=== PATIENT | female | born 1980 | race African-American/Black ===

== ENCOUNTER → 2019-05-15 | Emergency (ER) | payer MEDICAID, OTHER ==
[~2019-05-15] VITALS: Ht 167.6 cm; Wt 65.3 kg
[~2019-05-15] MED LIST: SODIUM CHLORIDE 0.9% 1,000 ML IV ONE
[2019-05-15 17:55] LABS: Basophils # (auto) 0.1 uL; Basophils % (auto) 0.6 % (0.0-2.0); Eosinophils # (auto) 0 uL; Eosinophils % (auto) 0.2 % (0.0-7.0); Hematocrit 39.9 % (36.0-46.0); Hemoglobin 13.2 g/dL (12.2-16.2); Lymphocytes # (auto) 1.4 uL; Lymphocytes % (auto) 13.2 % (10.0-50.0); Mean Corpuscular Hemoglobin 29.2 pg (28.0-32.0); Mean Corpuscular Hgb Conc. 33.1 g/dL (32.0-36.0); Mean Corpuscular Volume 88.2 fL (80.0-100.0); Monocytes # (auto) 0.6 uL; Monocytes % (auto) 5.9 % (0.0-12.0); Neutrophils # (auto) 8.5 uL; Neutrophils % (auto) 80.1 % (37.0-80.0); Platelet Count (auto) 278 10^3/uL (140-450); Red Blood Cells 4.52 10^6/uL (4.0-5.20); Red Cell Distribution Width 16.6 % (11.8-14.3); White Blood Cell 10.6 10^3/uL (4.4-10.8)
[2019-05-15 18:09] LABS: Albumin 4.1 g/dL (3.4-5.0); Calcium 9.2 mg/dL (8.5-10.1); Potassium 4.2 mmol/L (3.5-5.1)
[2019-05-15 18:15] LABS: BUN/Creatinine Ratio 9.2; Bilirubin, Total 0.5 mg/dL (0.2-1.0); Total Protein 8.5 g/dL (6.4-8.2)
[2019-05-15 18:59] VITALS: BP 113/80
== END | disposition home or self-care (01) ==
LOC: EDUNIT# 16:04 → ER 16:11 → EDBD 16:11
DX: S16.1XXA Strain of muscle, fascia and tendon at neck level, initial encounter (principal); K21.9 Gastro-esophageal reflux disease without esophagitis; Z98.51 Tubal ligation status; S09.8XXA Other specified injuries of head, initial encounter; X58.XXXA Exposure to other specified factors, initial encounter; Y93.89 Activity, other specified; Y92.89 Other specified places as the place of occurrence of the external cause; Y99.8 Other external cause status
CPT/HCPCS: 36415; 70450; 72125; 80053; 84484; 85025; 93005; 96360; 99285; J7030

== ENCOUNTER 2021-11-06 07:39 | Emergency (ER) | payer MEDICAID ==
[~2021-11-06] VITALS: Ht 167.6 cm; Wt 67.2 kg
[2021-11-06 09:28] LABS: Basophils # (auto) 0 10 ^3/uL (0-0.2); Basophils % (auto) 0.8 % (0.0-2.0); Eosinophils # (auto) 0 10 ^3/uL (0-0.8); Eosinophils % (auto) 0.6 % (0.0-7.0); Hematocrit 40.9 % (36.0-46.0); Hemoglobin 13.1 g/dL (12.2-16.2); Lymphocytes # (auto) 1.5 10 ^3/uL (0.4-5.4); Lymphocytes % (auto) 35.1 % (10.0-50.0); Mean Corpuscular Hemoglobin 29.4 pg (28.0-32.0); Mean Corpuscular Hgb Conc. 32.1 g/dL (32.0-36.0); Mean Corpuscular Volume 91.6 fL (80.0-100.0); Monocytes # (auto) 0.3 10 ^3/uL (0-1.3); Monocytes % (auto) 6.6 % (0.0-12.0); Neutrophils # (auto) 2.4 10 ^3/uL (1.6-8.6); Neutrophils % (auto) 56.9 % (37.0-80.0); Nucleated Red Blood Cells % 0.1 %; Red Blood Cells 4.47 10^6/uL (4.0-5.20); Red Cell Distribution Width 13.9 % (11.8-14.3); White Blood Cell 4.2 10^3/uL (4.4-10.8)
[2021-11-06 09:54] LABS: Potassium 3.4 mmol/L (3.5-5.1)
[2021-11-06 10:01] LABS: Bilirubin, Total 0.7 mg/dL (0.2-1.0); Calcium 9.2 mg/dL (8.5-10.1); Total Protein 7.6 g/dL (6.4-8.2)
[2021-11-06 10:22] LABS: Urine Bacteria FEW /hpf (None Seen); Urine Blood Negative /uL (Negative); Urine Specific Gravity 1.009 (1.001-1.035); Urine WBC 1 /hpf (0 - 5)
[2021-11-06] MEDS ORDERED: SODIUM CHLORIDE 0.9% 1,000 ML IV ONE (11:00)
[2021-11-06] MEDS ORDERED: IOHEXOL 300 MG/ML 100ML BOTTLE IJ ONE (11:17)
[2021-11-06] MEDS ORDERED: CIPR-173 PO (17:11)
[2021-11-06] MEDS ORDERED: NAP500T PO (17:11)
[2021-11-06] MEDS ORDERED: TRAM50TA2 PO (17:11)
[2021-11-06 17:25] VITALS: BP 166/97
== END 2021-11-06 17:27 | disposition home or self-care (01) ==
LOC: ER 07:39
DX: N39.0 Urinary tract infection, site not specified (principal); D25.9 Leiomyoma of uterus, unspecified; N83.202 Unspecified ovarian cyst, left side; K64.4 Residual hemorrhoidal skin tags
CPT/HCPCS: 36415; 74177; 80053; 81001; 83690; 83735; 84702; 85025; 99285; Q9967

== ENCOUNTER 2023-03-22 09:55 | Emergency (ER) | payer OTHER, MEDICAID ==
[~2023-03-22] VITALS: Ht 167.6 cm; Wt 70.2 kg
[~2023-03-22 09:55] MED LIST changes: +CIPR-173 PO; +NAP500T PO; -SODIUM CHLORIDE 0.9% 1,000 ML IV ONE; +TRAM50TA2 PO
[2023-03-22 10:47] VITALS: BP 131/95; PULSE 91; RESP 16; TEMP 97.5; O2SAT 100
[2023-03-22] MEDS ORDERED: HYDROcodone-ACET 10/325MG TAB PO ONE (11:00)
[2023-03-22] MEDS ORDERED: KETOROLAC TROMETH 60MG/2ML VIAL IM ONE (11:00)
== END 2023-03-22 12:15 | disposition home or self-care (01) ==
LOC: ER 09:55
DX: M54.12 Radiculopathy, cervical region (principal); M50.30 Other cervical disc degeneration, unspecified cervical region; K21.9 Gastro-esophageal reflux disease without esophagitis; Z86.2 Personal history of diseases of the blood and blood-forming organs and certain disorders involving the immune mechanism; Z79.899 Other long term (current) drug therapy
CPT/HCPCS: 72040; 96372; 99283; J1885

== ENCOUNTER 2024-05-06 21:57 | Inpatient (IN) | payer OTHER, MEDICAID ==
[~2024-05-06] VITALS: Ht 167.6 cm; Wt 72.7 kg
[2024-05-06 22:00] VITALS: BP 151/89; RESP 18; O2SAT 100
[2024-05-06 22:29] LABS: Nucleated Red Blood Cells % 0.1 %
[2024-05-06] MEDS ORDERED: NITROGLYCERIN 2% OINT 1GM PKG TD ONE (22:30)
[2024-05-06] MEDS ORDERED: ASPirin 325 MG TAB PO ONE (22:30)
[2024-05-06 22:35] LABS: Basophils # (auto) 0.1 10 ^3/uL (0-0.2); Basophils % (auto) 0.6 % (0.0-2.0); Eosinophils # (auto) 0.2 10 ^3/uL (0-0.8); Eosinophils % (auto) 2.9 % (0.0-7.0); Hematocrit 41.6 % (36.0-46.0); Lymphocytes # (auto) 3.4 10 ^3/uL (0.4-5.4); Lymphocytes % (auto) 39.6 % (10.0-50.0); Mean Corpuscular Hemoglobin 30.3 pg (28.0-32.0); Mean Corpuscular Hgb Conc. 33.7 g/dL (32.0-36.0); Mean Corpuscular Volume 89.9 fL (80.0-100.0); Monocytes # (auto) 0.5 10 ^3/uL (0-1.3); Monocytes % (auto) 5.8 % (0.0-12.0); Neutrophils # (auto) 4.3 10 ^3/uL (1.6-8.6); Neutrophils % (auto) 51.1 % (37.0-80.0); Platelet Count (auto) 231 10^3/uL (140-450); Red Blood Cells 4.63 10^6/uL (4.0-5.20); White Blood Cell 8.5 10^3/uL (4.4-10.8)
--- NOTE | 2024-05-06 22:38 | DVH ---
CHEST RADIOGRAPH Indication: cp Technique: Single frontal view of the chest was obtained Comparison: None FINDINGS: Lines and Tubes: None Lungs: Clear Pleura: No effusion. No pneumothorax. Cardiomediastinal contours: Unremarkable Bones: Unremarkable IMPRESSION: Clear lungs.
[2024-05-06 22:51] LABS: Alanine Aminotransferase 18 U/L (7-40); Alkaline Phosphatase 51 U/L (46-116); Anion Gap 11 (5-15); Aspartate Aminotransferase 19 U/L (13-40); Bilirubin, Total 0.5 mg/dL (0.2-1.0); Carbon Dioxide 25 mmol/L (20-31); Chloride 103 mmol/L (98-107); Glucose 93 mg/dL (74-106); Potassium 3.9 mmol/L (3.5-5.1); Sodium 139 mmol/L (136-145); Total Protein 7.9 g/dL (5.7-8.2)
[2024-05-06 22:52] LABS: Albumin 5.3 g/dL (3.2-4.8); Blood Urea Nitrogen 8 mg/dL (9-23)
--- NOTE | 2024-05-06 23:14 | ED.PDOC ---
History of Present Illness HPI Comments 44 y/o F with a history of hypertension, diabetes, GERD, anemia brought in by self complaining of chest pain for the last 3 days. Patient states the pain is intermittent, localized to the retrosternal area, associated with shortness breath and bilateral lower extremity swelling. Patient also notes that the veins in her legs have been more prominent than normal. She denies any fever, cough, nausea, vomiting or diaphoresis. Chief Complaint: Chest Pain Time Seen by MD: 22:10 Primary Care Provider: Shannon Wilson Reviewed Notes: Nurses Notes, Medications, Allergies Allergies: Coded Allergies: NO KNOWN ALLERGIES (Unverified , 05/15/19) Home Meds Active Scripts Tramadol Hcl (Tramadol Hcl) 50 Mg Tab, 50 MG PO BID for 5 Days, #10 TAB Prov:VIKRAM SANZ MD 11/06/21 Naproxen (NAPROSYN TABLET) 500 Mg Tb, 1 TAB PO BID for 7 Days, #14 TAB 1 Refill Prov:VIKRAM SANZ MD 11/06/21 Ciprofloxacin Hcl (Cipro) 500 Mg Tab, 1 TAB PO BID for 7 Days, #14 TAB Prov:VIKRAM SANZ MD 11/06/21 Information Source: Patient Mode of Arrival: Ambulatory Severity: Moderate Timing: Hours Duration: Since onset Prehospital treatment: None Past Medical History PAST MEDICAL HISTORY: Anemia, DM, GERD, HTN Surgical History: BTL, Hysterectomy 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 Moist mucous membranes.) Neck: Full Range of Motion, Normal Inspection Respiratory: Lungs Clear, No Accessory Muscle Use, No Respiratory Distress, Normal Breath Sounds Cardiovascular: No JVD, Regular Rate/Rhythm Breast Exam: Deferred Gastrointestinal: Non Tender, Soft Genitalia: Deferred Pelvic: Deferred Rectal: Deferred Extremities: Normal range of motion, Non-tender, Pedal edema (1+) Neurologic: Alert (Oriented x4), Normal Affect, Normal Mood, Other (Ambulatory without difficulty. No gross focal deficit.) Cerebellar Function: NOT DONE Reflexes: NOT DONE Skin: Dry, Normal Color, Warm Lymphatic: NOT DONE Was a procedure done? Was a procedure done?: No EKG EKG : Pulse Rate (adult): 85 Comments Sinus rhythm, rate 78, normal intervals, normal axis, normal QRS, nonspecific T changes. Differential Dx Considerations may include: ACS, VA, PE, chest wall pain, CHF, anxiety, GI etiology, pericarditis, infectious etiology such as pneumonia, among others. X-Ray, Labs, Meds, VS Vital Signs Date Time Temp Pulse Resp B/P (MAP) Pulse Ox O2 Delivery O2 Flow Rate FiO2 05/06/24 23:42 85 05/06/24 23:08 78 05/06/24 22:02 85 05/06/24 22:00 97.7 91 18 151/89 (109) 100 Lab Test 05/06/24 23:04 05/06/24 22:09 Range/Units Troponin I High Sensitivity 11 10 </=34 ng/L White Blood Count 8.5 4.4-10.8 10^3/uL Red Blood Count 4.63 4.0-5.20 10^6/uL Hemoglobin 14.0 12.2-16.2 g/dL Hematocrit 41.6 36.0-46.0 % Mean Corpuscular Volume 89.9 80.0-100.0 fL Mean Corpuscular Hemoglobin 30.3 28.0-32.0 pg Mean Corpuscular Hemoglobin Concent 33.7 32.0-36.0 g/dL Red Cell Distribution Width 14.0 11.8-14.3 % Platelet Count 231 140-450 10^3/uL Mean Platelet Volume 8.2 6.9-10.8 fL Neutrophils (%) (Auto) 51.1 37.0-80.0 % Lymphocytes (%) (Auto) 39.6 10.0-50.0 % Monocytes (%) (Auto) 5.8 0.0-12.0 % Eosinophils (%) (Auto) 2.9 0.0-7.0 % Basophils (%) (Auto) 0.6 0.0-2.0 % Neutrophils # (Auto) 4.3 1.6-8.6 10 ^3/uL Lymphocytes # (Auto) 3.4 0.4-5.4 10 ^3/uL Monocytes # (Auto) 0.5 0-1.3 10 ^3/uL Eosinophils # (Auto) 0.2 0-0.8 10 ^3/uL Basophils # (Auto) 0.1 0-0.2 10 ^3/uL Nucleated Red Blood Cells 0.1 % D-Dimer, Quantitative 0.66 H 0.0-0.49 mg/L FEU Sodium Level 139 136-145 mmol/L Potassium Level 3.9 3.5-5.1 mmol/L Chloride Level 103 98-107 mmol/L Carbon Dioxide Level 25 20-31 mmol/L Anion Gap 11 5-15 Blood Urea Nitrogen 8 L 9-23 mg/dL Creatinine 0.89 0.550-1.02 mg/dL Glomerular Filtration Rate Calc 82 >90 mL/min BUN/Creatinine Ratio 9.0 L 10.0-20.0 Serum Glucose 93 74-106 mg/dL Calcium Level 11.0 H 8.7-10.4 mg/dL Total Bilirubin 0.5 0.2-1.0 mg/dL Aspartate Amino Transferase (AST) 19 13-40 U/L Alanine Aminotransferase (ALT) 18 7-40 U/L Alkaline Phosphatase 51 46-116 U/L B-Type Natriuretic Peptide 8.95 0-100 pg/mL Total Protein 7.9 5.7-8.2 g/dL Albumin 5.3 H 3.2-4.8 g/dL [place] [address] Ph: [phone] DIAGNOSTIC IMAGING Diagnostic Imaging Report : [id number] Signed PATIENT: KIET BERNAL ACCT: [id number] UNIT: [id number] : 1980 LOC: ER ROOM / BED: / AGE / SEX: 44 / F ADM STATUS: REG ER SERVICE 15 ORDERING PHYSICIAN: GAEL LEONARD MD PROCEDURE(s): CXRP - CHEST PORTABLE REASON: cp ORDER NUMBER(s): [id number], ACCESSION NUMBER(s): [id number] CHEST RADIOGRAPH Indication: cp Technique: Single frontal view of the chest was obtained Comparison: None FINDINGS: Lines and Tubes: None Lungs: Clear Pleura: No effusion. No pneumothorax. Cardiomediastinal contours: Unremarkable Bones: Unremarkable IMPRESSION: Clear lungs. ATED BY: LEONARDO TOM DO DICTATED DATE/TIME: 05/06/242235 SIGNED BY: LEONARDO TOM DO SIGNED DATE/TIME: 05/06/242235 CC: X-Ray, Labs, Meds, VS Comment 44-year-old female with history of hypertension, diabetes, GERD and anemia complaining of chest pain and lower extremity swelling Vitals remarkable for BP 151/89 Exam remarkable for 1+ lower extremity edema Rhythm strip independently interpreted by me: Sinus rhythm, rate 78, no ectopy. Chest x-ray unremarkable CT angio chest pending Bilateral lower extremity ultrasound negative for DVT CBC, metabolic panel, BNP and 2 serial troponins unremarkable D-dimer elevated at 0.66 Patient treated with the following in the ED: Aspirin 325 mg p.o., nitro bid 1/2 inch to chest wall On re-evaluation, patient is comfortable with stable vitals. Plan is to admit patient for Cardiology evaluation. Patient was evaluated by the hospitalist and plan was for admission, however the patient stated she did not want to stay. Patient was advised regarding the risks of leaving prior to completion of evaluation and treatment including misse d blood clot in the lungs, persistent or worsening symptoms, permanent disability or . She expressed understanding and insisted on leaving against medical advice. She was alert, oriented x4 and capable of making informed decisions at the time she signed out against medical advice. She was advised to follow-up with her primary physician as soon as possible and to seek immediate medical attention for persistent or worsening symptoms. Time of 1ST Reevaluation: 22:40 Reevaluation 1ST: Unchanged Patient Education/Counseling: Diagnosis, Treatment Family Education/Counseling: No Family Present Departure 1 Departure Time of Disposition: 01:55 Impression: Primary Impression: Chest pain with high risk for cardiac etiology Additional Impression: Elevated d-dimer Disposition: 07 LEFT AGAINST MEDICAL ADVICE Condition: Guarded Additional Instructions: Your blood tests were unremarkable except for the screening test for blood clots, which was abnormal. Your chest x-ray was normal. A CT angiogram of your chest to look for blood clots in your lungs was not completed because you are leaving against medical advice. Follow-up with your primary doctor as soon as possible. Seek immediate medical attention for persistent or worsening symptoms. Discharged With: Self Critical Care Note Critical Care Time?: No Stability Stability form required: No Heart Score Heart Score: Heart Score Response (Comments) Value History Highly Suspicious 2 EKG Repolarization Disturb 1 Age <45 0 Risk Factors 1 or 2 risk factors 1 Troponin Normal limit 0 Total 4 I personally scribed for GAEL LEONARD MD ([email or web address]) on 05/06/24 at 23:14. Electronically submitted by Sandro Fletcher ([email or web address]). I personally scribed for GAEL LEONARD MD ([email or web address]) on 05/06/24 at 23:42. Electronically submitted by Sandro Fletcher ([email or web address]). GAEL LEONARD MD May 06, 2024 23:14
[2024-05-06 23:42] VITALS: PULSE 85
--- NOTE | 2024-05-06 23:55 | ECG ---
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
[2024-05-07] MEDS ORDERED: ACETAMINOPHEN 325 MG TAB PO PRN (02:30)
--- NOTE | 2024-05-07 03:02 | DVH ---
Examination: BLDVT CLINICAL INDICATION: swelling DIREAS; Reason for Exam: Ambulatory; Ambulatory; Modes of Transportatio n DITRANS2; How is patient transported? U; Unknown; Yes/No/Unknown ITS.PREG2; ? [id number]; YES ; Are you ordering this test to VTE.11; Are you ordering this test to rule out VTE. COMPARISON: None. TECHNIQUE: Using real-time ultrasonic imaging and color Doppler, the deep venous system of both lowe r extremities was studied from the level of the common femoral veins to the posterior tibial veins. FINDINGS: Ultrasound examination of bilateral common femoral veins, bilateral deep femoral veins, th e proximal, middle and distal segments of bilateral superficial femoral veins, bilateral popliteal ve ins, and bilateral posterior tibial veins reveal normal phasicity and compression and augmentation. No thrombus was visualized. IMPRESSION: There is no evidence of deep venous thrombosis or superficial thrombophlebitis in bilater al lower extremity venous systems in the current scan. Electronically Signed 05/07/2024 03:01 Scott De Los Santos
--- NOTE | 2024-05-07 03:09 | DVHHPRES ---
History of Present Illness Resident Creating Document: RALPH REAL History of Present Illness This is a 44-year-old female with past medical history of hypertension, prediabetes, thyroiditis in 2019, GERD, cervical arthritis who presented to the ED with chief complaint of chest pain. The patient described the chest pain as localized substernally radiating to the back that gets exacerbated with deep breathing. The patient described the pain as sharp/pressure in nature that is intermittent and has been going on for three days which comes and goes. The patient rated the pain as 6/10 on the pain scale. The patient denies shortness of breath at this time, denies fever/chills or any recent flu-like symptoms. Initial labs CBC and CMP were grossly unremarkable. Troponins came back negative and BNP was on normal range at 8.9. Both initial and subsequent EKGs showed sinus rhythm with no ST segment elevation or depression. Initial chest x-ray was grossly clear without evidence of clear consolidations. On my examination, the patient is reporting substernal chest pain that gets worse with deep inspiration. There are no crackles on lung auscultation and rest of physical examination is grossly unremarkable. The patient reports chronic lower extremity pain for which a bilateral lower extremity venous Doppler was ordered. We will admit the patient for further assessment and management. Past surgical history: Hysterectomy in March of 2023 Home medications: Amlodipine 2.5 mg daily, phentermine Social history: Occasional alcohol intake, no smoking, no drugs. Cardiovascular: HTN GI: GERD Endocrine: Other (prediabetes) Past Surgical History: Hysterectomy Family History: None Smoke: No ALCOHOL: occassional Drugs: None Lives: with Family Domestic Violence: Neg Review of Systems Constitutional: No: Fever, Chills, Sweats, Weakness, Malaise, Other Eyes: No: Pain, Vision change, Conjunctivae inflammation, Eyelid inflammation, Other, Redness ENT: No: Ear pain, Ear discharge, Nose pain, Nose discharge, Nose congestion, Mouth pain, Mouth swelling, Throat pain, Throat swelling, Other Respiratory: No: Cough, Dry, Shortness of breath, SOB with excertion, Wheezing, Hemoptysis, Pleuritic Pain, Sputum, Wheezing, Other Cardiovascular: Chest Pain; No: Palpitations, Orthopnea, Paroxysmal Noc. Dyspnea, Edema, Lt Headedness, Other Gastrointestinal: No: Nausea, Vomiting, Abdominal Pain, Diarrhea, Constipation, Melena, Hematochezia, Other Genitourinary: No Dysuria, No Frequency, No Incontinence, No Hematuria, No Retention, No Other Musculoskeletal: No: other, neck pain, shoulder pain, arm pain, back pain, hand pain, leg pain, foot pain Skin: No: Rash, Lesions, Jaundice, Bruising, Other Neurological: No: Weakness, Numbness, Incoordination, Change in speech, Confusion, Seizures, Other Allergies: Coded Allergies: NO KNOWN ALLERGIES (Unverified , 05/15/19) Medications Current Medications Medications Dose Ordered Sig/Cayla Route Start Time Stop Time Status Last Admin Dose Admin Acetaminophen 650 mg Q6HP PRN PO 05/07/24 02:30 UNV Exam Vital Signs Vital Signs Date Time Temp Pulse Resp B/P (MAP) Pulse Ox O2 Delivery O2 Flow Rate FiO2 05/06/24 23:42 85 05/06/24 22:00 97.7 18 151/89 (109) 100 General Appearance: Alert, Oriented X3, Cooperative, No acute distress HEENT: Atraumatic, PERRLA, EOMI, Mucous membr. moist/pink Respiratory: Clear to auscultation, Normal air movement Cardiovascular: Regular rate, Normal S1, Normal S2, No murmurs Abdominal: Normal bowel sounds, Soft, No tenderness, No hepatospenomegaly Extremities: No clubbing, No cyanosis, No edema, Normal pulses, No tenderness/swelling Skin: No rashes, No breakdown, No significant lesion Neuro: Normal gait, Normal speech, Strength at 5/5 X4 ext, Normal tone, Sensation intact, Cranial nerves 3-12 NL, Reflexes 2+ Psych/Mental Status: Mental status NL, Mood NL Labs/Xrays Labs Test 05/06/24 23:04 05/06/24 22:09 Range/Units Troponin I High Sensitivity 11 </=34 ng/L White Blood Count 8.5 4.4-10.8 10^3/uL Red Blood Count 4.63 4.0-5.20 10^6/uL Hemoglobin 14.0 12.2-16.2 g/dL Hematocrit 41.6 36.0-46.0 % Mean Corpuscular Volume 89.9 80.0-100.0 fL Mean Corpuscular Hemoglobin 30.3 28.0-32.0 pg Mean Corpuscular Hemoglobin Concent 33.7 32.0-36.0 g/dL Red Cell Distribution Width 14.0 11.8-14.3 % Platelet Count 231 140-450 10^3/uL Mean Platelet Volume 8.2 6.9-10.8 fL Neutrophils (%) (Auto) 51.1 37.0-80.0 % Lymphocytes (%) (Auto) 39.6 10.0-50.0 % Monocytes (%) (Auto) 5.8 0.0-12.0 % Eosinophils (%) (Auto) 2.9 0.0-7.0 % Basophils (%) (Auto) 0.6 0.0-2.0 % Neutrophils # (Auto) 4.3 1.6-8.6 10 ^3/uL Lymphocytes # (Auto) 3.4 0.4-5.4 10 ^3/uL Monocytes # (Auto) 0.5 0-1.3 10 ^3/uL Eosinophils # (Auto) 0.2 0-0.8 10 ^3/uL Basophils # (Auto) 0.1 0-0.2 10 ^3/uL Nucleated Red Blood Cells 0.1 % D-Dimer, Quantitative 0.66 H 0.0-0.49 mg/L FEU Sodium Level 139 136-145 mmol/L Potassium Level 3.9 3.5-5.1 mmol/L Chloride Level 103 98-107 mmol/L Carbon Dioxide Level 25 20-31 mmol/L Anion Gap 11 5-15 Blood Urea Nitrogen 8 L 9-23 mg/dL Creatinine 0.89 0.550-1.02 mg/dL Glomerular Filtration Rate Calc 82 >90 mL/min BUN/Creatinine Ratio 9.0 L 10.0-20.0 Serum Glucose 93 74-106 mg/dL Calcium Level 11.0 H 8.7-10.4 mg/dL Total Bilirubin 0.5 0.2-1.0 mg/dL Aspartate Amino Transferase (AST) 19 13-40 U/L Alanine Aminotransferase (ALT) 18 7-40 U/L Alkaline Phosphatase 51 46-116 U/L B-Type Natriuretic Peptide 8.95 0-100 pg/mL Total Protein 7.9 5.7-8.2 g/dL Albumin 5.3 H 3.2-4.8 g/dL Assessment/Plan Assessment/Plan Assessment/plan Acute chest pain likely pleuritic, R/O ACS R/O myocarditis R/O rheumatologic causes -patient reported substernal chest pain radiating to the back that is worse with deep inspiration -initial and subsequent EKGs showed sinus rhythm with no ST segment elevation or depression or T-wave abnormalities. -troponins came back negative -BNP came back unremarkable at 8.9 -we will order an echocardiogram -Ordered UDS -Ordered DAVIS, (ruling out rheumatologic diseases Lupus) -D-dimer minimally elevated -Bilat lower ext venous doppler prelim report negative for DVT. Chronic bilateral lower extremity pain and tingling sensations, ruled out DVT -order bilateral lower extremity venous Doppler which came back showing no evidence of DVT at this time. Primary hypertension -Resume home amlodipine 2.5mg daily -Monitor BP and adjust med dosage if needed Prediabetes -Ordered HbA1c -Monitor Blood glucose hx of thyroiditis -Ordered TSH -Monitor GERD -Start pantoprazole 40mg daily po Goals of care discussed with the patient at bedside for >30min, FULL CODE Plan discussed with Dr. Benjamin Plan discussed with: Patient My Orders Orders - RALPH REAL Procedure Category Date Status Time Admit ADMIT 05/07/24 Transmitted 02:25 Code Status CODE 05/07/24 Transmitted 02:25 Vital Signs ALPESH 05/07/24 In Process 02:25 Review Orders With ALPESH 05/07/24 In Process Adm. 02:25 Regular Diet DIET 05/07/24 Transmitted Breakfast Acetaminophen Tablet PHA 05/07/24 Logged (Tylenol Tablet) 02:30 Notify Md Of Changes ALPESH 05/07/24 In Process From Base 02:25 Advance Directive ALPESH 05/07/24 In Process 02:25 Basic Metabolic Panel LAB 05/07/24 Transmitted 04:00 Urinalysis LAB 05/07/24 Transmitted 02:25 Complete Blood Count LAB 05/07/24 Transmitted 04:00 Lipid Panel LAB 05/07/24 Transmitted 02:25 Patient Condition ORDERS 05/07/24 Transmitted 02:25 Allergies ALPESH 05/07/24 In Process 02:25 Drug Screen LAB 05/07/24 Transmitted 02:25 Hemoglobin A1c LAB 05/07/24 Transmitted 02:25 Date of Service: May 07, 2024 Billing Provider: REJI BENJAMIN MD Common Visit Codes: 59258-FPTWGSC INP/OBS CARE (HIGH) RALPH REAL May 07, 2024 03:09 REJI BENJAMIN MD May 07, 2024 08:44
[2024-05-07] MEDS ORDERED: amLODIPine BESYLATE 5 MG TAB PO SCH (08:00)
--- NOTE | 2024-05-07 09:46 | ECG ---
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
[2024-05-07] MEDS ORDERED: ASPirin 81 mg TAB PO SCH (10:00)
--- NOTE | 2024-05-07 10:27 | DVHDSRES ---
Discharge Summary Date of Admission Resident Creating Document: RALPH REAL RESIDENT May 07, 2024 at 02:25 Date of Discharge: May 07, 2024 Admitting Diagnosis Suspected acute pleuritic chest pain, rule out acute coronary Labs/Diagnostic Data: Laboratory Results Test 05/06/24 23:04 05/06/24 22:09 Troponin I High Sensitivity 11 ng/L (</=34) White Blood Count 8.5 10^3/uL (4.4-10.8) Red Blood Count 4.63 10^6/uL (4.0-5.20) Hemoglobin 14.0 g/dL (12.2-16.2) Hematocrit 41.6 % (36.0-46.0) Mean Corpuscular Volume 89.9 fL (80.0-100.0) Mean Corpuscular Hemoglobin 30.3 pg (28.0-32.0) Mean Corpuscular Hemoglobin Concent 33.7 g/dL (32.0-36.0) Red Cell Distribution Width 14.0 % (11.8-14.3) Platelet Count 231 10^3/uL (140-450) Mean Platelet Volume 8.2 fL (6.9-10.8) Neutrophils (%) (Auto) 51.1 % (37.0-80.0) Lymphocytes (%) (Auto) 39.6 % (10.0-50.0) Monocytes (%) (Auto) 5.8 % (0.0-12.0) Eosinophils (%) (Auto) 2.9 % (0.0-7.0) Basophils (%) (Auto) 0.6 % (0.0-2.0) Neutrophils # (Auto) 4.3 10 ^3/uL (1.6-8.6) Lymphocytes # (Auto) 3.4 10 ^3/uL (0.4-5.4) Monocytes # (Auto) 0.5 10 ^3/uL (0-1.3) Eosinophils # (Auto) 0.2 10 ^3/uL (0-0.8) Basophils # (Auto) 0.1 10 ^3/uL (0-0.2) Nucleated Red Blood Cells 0.1 % D-Dimer, Quantitative 0.66 mg/L FEU (0.0-0.49) Sodium Level 139 mmol/L (136-145) Potassium Level 3.9 mmol/L (3.5-5.1) Chloride Level 103 mmol/L (98-107) Carbon Dioxide Level 25 mmol/L (20-31) Anion Gap 11 (5-15) Blood Urea Nitrogen 8 mg/dL (9-23) Creatinine 0.89 mg/dL (0.550-1.02) Glomerular Filtration Rate Calc 82 mL/min (>90) BUN/Creatinine Ratio 9.0 (10.0-20.0) Serum Glucose 93 mg/dL (74-106) Calcium Level 11.0 mg/dL (8.7-10.4) Total Bilirubin 0.5 mg/dL (0.2-1.0) Aspartate Amino Transferase (AST) 19 U/L (13-40) Alanine Aminotransferase (ALT) 18 U/L (7-40) Alkaline Phosphatase 51 U/L (46-116) B-Type Natriuretic Peptide 8.95 pg/mL (0-100) Total Protein 7.9 g/dL (5.7-8.2) Albumin 5.3 g/dL (3.2-4.8) Other Laboratory Tests 05/06/24 22:09 Brief Hx & Hospital Course: This is a 44-year-old female with past medical history of hypertension, prediabetes, thyroiditis in 2019, GERD, cervical arthritis who presented to the ED with chief complaint of chest pain. The patient described the chest pain as localized substernally radiating to the back that gets exacerbated with deep breathing. The patient described the pain as sharp/pressure in nature that is intermittent and has been going on for three days which comes and goes. The patient rated the pain as 6/10 on the pain scale. The patient denies shortness of breath at this time, denies fever/chills or any recent flu-like symptoms. Initial labs CBC and CMP were grossly unremarkable. Troponins came back negative and BNP was on normal range at 8.9. Both initial and subsequent EKGs showed sinus rhythm with no ST segment elevation or depression. Initial chest x-ray was grossly clear without evidence of clear consolidations. On my examination, the patient is reporting substernal chest pain that gets worse with deep inspiration. There are no crackles on lung auscultation and rest of physical examination is grossly unremarkable. The patient reports chronic lower extremity pain for which a bilateral lower extremity venous Doppler was ordered- negative for DVT. Hospital course-patient came with a complaint of chest pain, localized radiating to the back, exacerbated with deep breathing, sharp in nature. Patient was admitted at the hospital likely due to pleuritic chest pain, to rule out acute coronary syndrome. Initial labs CBC and CMP were grossly unremarkable. Troponins came back negative and BNP was on normal range at 8.9. Both initial and subsequent EKGs showed sinus rhythm with no ST segment elevation or depression. Initial chest x-ray was grossly clear without evidence of clear consolidations. On my examination, the patient is reporting substernal chest pain that gets worse with deep inspiration. There are no crackles on lung auscultation and rest of physical examination is grossly unremarkable. The patient reports chronic lower extremity pain for which a bilateral lower extremity venous Doppler was ordered-negative for DVT. Linux Systems Engineer went to check on this patient and patient left AMA. Patient's condition on discharge was unknown and patient's condition discharge was undetermined.. Diagnosis Acute chest pain likely pleuritic, ACS could not be ruled out R/O myocarditis R/O rheumatologic causes Chronic bilateral lower extremity pain and tingling sensations, ruled out DVT Primary hypertension Prediabetes hx of thyroiditis History of cervical arthritis GERD Discharge plan Patient was not found at the bedside Operations or Procedures [place] [address] Ph: [phone] DIAGNOSTIC IMAGING Diagnostic Imaging Report : [id number] Signed PATIENT: KIET BERNAL ACCT: [id number] UNIT: [id number] : 1980 LOC: OVERFLOW ROOM / BED: [facility]-ER / A AGE / SEX: 44 / F ADM STATUS: ADM IN SERVICE 0146 ORDERING PHYSICIAN: GAEL LEONARD MD PROCEDURE(s): BLDVT - BiLat Lower DVT REASON: ble swelling ORDER NUMBER(s): [id number], ACCESSION NUMBER(s): [id number] Examination: BLDVT CLINICAL INDICATION: swelling DIREAS; Reason for Exam: Ambulatory; Ambulatory; Modes of Transportation DITRANS2; How is patient transported? U; Unknown; Yes/No/Unknown ITS.PREG2; ? [id number]; YES; Are you ordering this test to VTE.11; Are you ordering this test to rule out VTE. COMPARISON: None. TECHNIQUE: Using real-time ultrasonic imaging and color Doppler, the deep venous system of both lower extremities was studied from the level of the common femoral veins to the posterior tibial veins. FINDINGS: Ultrasound examination of bilateral common femoral veins, bilateral deep femoral veins, the proximal, middle and distal segments of bilateral superficial femoral veins, bilateral popliteal veins, and bilateral posterior tibial veins reveal normal phasicity and compression and augmentation. No thrombus was visualized. IMPRESSION: There is no evidence of deep venous thrombosis or superficial thrombophlebitis in bilateral lower extremity venous systems in the current scan. Electronically Signed 05/07/2024 03:01 Scott De Los Santos ATED BY: KIM LYNCH MD DICTATED DATE/TIME: 05/07/24300 SIGNED BY: KIM LYNCH MD SIGNED DATE/TIME: 05/07/24300 CC: [place] [address] Ph: [phone] DIAGNOSTIC IMAGING Diagnostic Imaging Report : [id number] Signed PATIENT: KIET BERNAL ACCT: [id number] UNIT: [id number] : 1980 LOC: ER ROOM / BED: / AGE / SEX: 44 / F ADM STATUS: REG ER SERVICE 15 ORDERING PHYSICIAN: GAEL LEONARD MD PROCEDURE(s): CXRP - CHEST PORTABLE REASON: cp ORDER NUMBER(s): [id number], ACCESSION NUMBER(s): [id number] CHEST RADIOGRAPH Indication: cp Technique: Single frontal view of the chest was obtained Comparison: None FINDINGS: Lines and Tubes: None Lungs: Clear Pleura: No effusion. No pneumothorax. Cardiomediastinal contours: Unremarkable Bones: Unremarkable IMPRESSION: Clear lungs. ATED BY: BRENDA TOM DO DICTATED DATE/TIME: 05/06/242235 SIGNED BY: BRENDA TOM DO SIGNED DATE/TIME: 05/06/242235 CC: Condition at Discharge: Undetermined Final Diagnosis/Problems List Acute chest pain likely pleuritic, ACS could not be ruled out R/O myocarditis R/O rheumatologic causes Chronic bilateral lower extremity pain and tingling sensations, ruled out DVT History of cervical arthritis Primary hypertension Prediabetes hx of thyroiditis GERD Discharge Disposition: AMA Discharge Instruct/Medications Diet: Cardiac 2g Na,low cholest Discharge Statement: "Patient was advised to return to the ER or call 911 if any headaches, dizziness, shortness of breath, chest pain, abdominal pain, bleeding, fevers, or worsening of medical condition. Patient was counseled about treatment plan, medications, possible side effects, patientverbalized understanding. All questions were answered to the best of my ability. This discharge took greater then 30 minutes in planning, reviewing documentation, counseling the patient, and discussing with other team members." ASSESSMENT ASSESSMENT Assessment TRENTON ALONZO RESIDENT May 07, 2024 10:27
== END 2024-05-07 02:33 | disposition left against medical advice (07) | DRG 313 ==
LOC: ER 21:57 → OVERFLOW 05-07 02:25
PROVIDERS: ADMIT Student in an Organized Health Care Education/Training Program; ATTEND Student in an Organized Health Care Education/Training Program
DX: R07.89 Other chest pain (principal); I24.9 Acute ischemic heart disease, unspecified; I51.4 Myocarditis, unspecified; K21.9 Gastro-esophageal reflux disease without esophagitis; I10 Essential (primary) hypertension; M13.88 Other specified arthritis, other site; Z53.29 Procedure and treatment not carried out because of patient's decision for other reasons; E11.9 Type 2 diabetes mellitus without complications; Z90.710 Acquired absence of both cervix and uterus; Z82.49 Family history of ischemic heart disease and other diseases of the circulatory system
CPT/HCPCS: 36415; 71045; 80053; 83880; 84484; 85025; 85379; 93005; 93970; G0378

== ENCOUNTER 2024-05-22 23:42 | Inpatient (IN) | payer OTHER, MEDICAID ==
[~2024-05-22] VITALS: Ht 167.6 cm; Wt 70.7 kg
--- NOTE | 2024-05-23 00:05 | ED.PDOC ---
History of Present Illness HPI Comments 44-year-old female, with a history of hypertension, prediabetes, thyroiditis in 2019, GERD, and cervical arthritis, presents with complaint of nonradiating, sternal chest pain, shortness a breath, and bilateral leg swelling, numbness, and tingling, today. Patient endorses on ongoing symptoms following unprovoked onset, yesterday. She comments on pain being sharp and pressure-like in quality in having similar episode of symptoms with accompanying ED visit and hospital admission on 05/07/2024, which she reports on leaving against medical advice then. Patient denies having any palpitations, nausea, vomiting, fever, chills, or other associated symptoms or modifiers at this time Time Seen by MD: 23:50 Primary Care Provider: Shannon Wilson Reviewed Notes: Nurses Notes, Medications, Allergies Allergies: Coded Allergies: NO KNOWN ALLERGIES (Unverified , 05/15/19) Home Meds Active Scripts Tramadol Hcl (Tramadol Hcl) 50 Mg Tab, 50 MG PO BID for 5 Days, #10 TAB Prov:VIKRAM SANZ MD 11/06/21 Naproxen (NAPROSYN TABLET) 500 Mg Tb, 1 TAB PO BID for 7 Days, #14 TAB 1 Refill Prov:VIKRAM SANZ MD 11/06/21 Ciprofloxacin Hcl (Cipro) 500 Mg Tab, 1 TAB PO BID for 7 Days, #14 TAB Prov:VIKRAM SANZ MD 11/06/21 Information Source: Patient Mode of Arrival: Ambulatory Severity: Moderate Timing: Days Duration: Since onset Prehospital treatment: None Past Medical History PAST MEDICAL HISTORY: Anemia, Arthritis (Cervical arthritis), DM (Prediabetes), GERD, HTN (Primary hypertension), Thyroid (Thyroiditis) Surgical History: BTL, Hysterectomy HAT BRIM CURLER History: No Pertinent HAT BRIM CURLER History Family History Family History: Family hx of HTN Social History Smoker: Non-Smoker Alcohol: Occasionally Drugs: Marijuana Lives In: Home All Other Systems: Reviewed and Negative (Comprehensive systems review obtained and negative except for what is stated in the HPI.) Physical Exam General Appearance: No Apparent Distress, Normal HEENT: Normal ENT Inspection, Pharynx Normal, TMs Normal Neck: Full Range of Motion, Non-Tender, Normal, Normal Inspection Respiratory: Chest Non-Tender, Lungs Clear, No Accessory Muscle Use, No Resp iratory Distress, Normal Breath Sounds Cardiovascular: No Edema, No JVD, No Murmur, No Gallop, Normal Peripheral Pulses, Regular Rate/Rhythm Breast Exam: Deferred Gastrointestinal: No Organomegaly, Non Tender, No Pulsatile Mass, Normal Bowel Sounds, Soft Genitalia: Deferred Pelvic: Deferred Rectal: Deferred Extremities: No calf tenderness, Normal capillary refill, Normal inspection, Normal range of motion, Non-tender, No pedal edema Musculoskeletal : Apperance: Normal Neurologic: Alert, aquatic scientist II-XII nml as Tested, No Motor Deficits, Normal Affect, Normal Mood, No Sensory Deficits Cerebellar Function: Normal Reflexes: Normal Skin: Dry, Normal Color, Warm Lymphatic: No Adenopathy Was a procedure done? Was a procedure done?: No EKG EKG : [place]: Normal Cardiac Rhythm: NSR Block: None Hypertrophy: None ST: Normal Differential Dx Considerations may include: Primary hypertension, ACS, costochondritis, pericarditis, gastritis, gastroenteritis, anxiety, angina, IN, PE, URI, viral syndrome, among others X-Ray, Labs, Meds, VS Vital Signs Date Time Temp Pulse Resp B/P (MAP) Pulse Ox O2 Delivery O2 Flow Rate FiO2 05/23/24 00:43 99 05/22/24 23:58 97.9 103 20 160/102 (121) 98 05/22/24 23:47 103 Lab Test 05/23/24 00:40 05/22/24 23:59 05/22/24 23:51 Range/Units Troponin I High Sensitivity Pending 11 </=34 ng/L Urine Color Straw Yellow Urine Clarity Clear Clear Urine pH 5.5 5.0-9.0 Urine Specific [place] 1.001 1.001-1.035 Urine Protein Negative Negative Urine Ketones Negative Negative Urine Blood Negative Negative /uL Urine Nitrite Negative Negative Urine Bilirubin Negative Negative Urine Urobilinogen Normal Negative mg/dL Urine Leukocyte Esterase Negative Negative /uL Urine RBC None seen 0 - 4 /hpf Urine Microscopic WBC 0-5 /HPF Urine Squamous Epithelial Cells None seen <5 /hpf Urine Bacteria None seen None Seen /hpf Urine Glucose Normal Normal mg/dL White Blood Count 7.2 4.4-10.8 10^3/uL Red Blood Count 4.47 4.0-5.20 10^6/uL Hemoglobin 13.4 12.2-16.2 g/dL Hematocrit 40.0 36.0-46.0 % Mean Corpuscular Volume 89.5 80.0-100.0 fL Mean Corpuscular Hemoglobin 30.0 28.0-32.0 pg Mean Corpuscular Hemoglobin Concent 33.6 32.0-36.0 g/dL Red Cell Distribution Width 13.5 11.8-14.3 % Platelet Count 214 140-450 10^3/uL Mean Platelet Volume 7.9 6.9-10.8 fL Neutrophils (%) (Auto) 49.6 37.0-80.0 % Lymphocytes (%) (Auto) 41.2 10.0-50.0 % Monocytes (%) (Auto) 7.7 0.0-12.0 % Eosinophils (%) (Auto) 0.9 0.0-7.0 % Basophils (%) (Auto) 0.6 0.0-2.0 % Neutrophils # (Auto) 3.6 1.6-8.6 10 ^3/uL Lymphocytes # (Auto) 3.0 0.4-5.4 10 ^3/uL Monocytes # (Auto) 0.6 0-1.3 10 ^3/uL Eosinophils # (Auto) 0.1 0-0.8 10 ^3/uL Basophils # (Auto) 0 0-0.2 10 ^3/uL Nucleated Red Blood Cells 0.1 % Sodium Level 137 136-145 mmol/L Potassium Level 3.1 L 3.5-5.1 mmol/L Chloride Level 101 98-107 mmol/L Carbon Dioxide Level 26 20-31 mmol/L Anion Gap 10 5-15 Blood Urea Nitrogen 11 9-23 mg/dL Creatinine 0.90 0.550-1.02 mg/dL Glomerular Filtration Rate Calc 81 >90 mL/min BUN/Creatinine Ratio 12.2 10.0-20.0 Serum Glucose 100 74-106 mg/dL Calcium Level 10.8 H 8.7-10.4 mg/dL Time of 1ST Reevaluation: 00:20 Reevaluation 1ST: Unchanged Patient Education/Counseling: Diagnosis, Treatment Family Education/Counseling: No Family Present Additional Information Previous visit documents reviewed: 05/07/2024 The following tests were ordered, and results were reviewed by me: CXR, EKG, troponin, CBC, BMP, UA I reviewed and agreed with the following test results read by other providers: CXR I discussed treatment and results with medical personnel and: patient Departure 1 Departure Time of Disposition: 01:08 (Patient presented with chest pain that was concerning for possible STEMI, ACS, PE, Pneumonia, Muscle Strain, COPD, Dissection. Data: 1. I ordered and reviewed the result of at least 3 labs in cluding a CBC, BMP, and Troponin. 2. I independently interpreted the following tests: EKG which shows sinus arrhythmia and Chest X-ray which shows benign chest.Risk:This patient has a high risk of morbidity due to further diagnostic testing or treatment and may suffer from an acute cardiac or respiratory disorder. Workup reveals concern for ACS and patient should be admitted for fu rther workup and possible expert consultation. ) Impression: Primary Impression: Acute chest pain Additional Impressions: Lower extremity edema Shortness of breath Disposition: ADMITTED INPATIENT Admit to: Med Surg Condition: Serious Critical Care Note Critical Care Time?: Yes Critical care comment: Acute chest pain Authorized and Performed by: Diego Warren MD Total critical care time: Approximately 38 minutes Due to a high probability of clinically significant, life threatening deterioration, the patient required my highest level of preparedness to intervene emergently and I personally spent this critical care time directly and personally managing the patient. This critical care time included obtaining a history; examining the patient; pulse oximetry; ordering and review of studies; arranging urgent treatment with development of a management plan; evaluation of patient's response to treatment; frequent reassessment; and, discussions with other providers. This critical care time was performed to assess and manage the high probability of imminent, life-threatening deterioration that could result in multi-organ failure. It was exclusive of separately billable procedures and treating other patients and teaching time. Please see my other sections and the rest of the note for further information on patient assessment and treatment. Stability Stability form required: No Heart Score Heart Score: Heart Score Response (Comments) Value History Slightly Suspicious 0 EKG Normal 0 Age <45 0 Risk Factors 1 or 2 risk factors 1 Troponin Normal limit 0 Total 1 I personally scribed for DIEGO WARREN MD ([email or web address]) on 05/23/24 at 00:05. Electronically submitted by Sandro Fletcher [email or web address]). DIEGO WARREN MD May 23, 2024 00:05
[2024-05-23 00:08] LABS: Basophils # (auto) 0 10 ^3/uL (0-0.2); Basophils % (auto) 0.6 % (0.0-2.0); Eosinophils # (auto) 0.1 10 ^3/uL (0-0.8); Eosinophils % (auto) 0.9 % (0.0-7.0); Hemoglobin 13.4 g/dL (12.2-16.2); Lymphocytes % (auto) 41.2 % (10.0-50.0); Mean Corpuscular Hgb Conc. 33.6 g/dL (32.0-36.0); Mean Corpuscular Volume 89.5 fL (80.0-100.0); Monocytes # (auto) 0.6 10 ^3/uL (0-1.3); Monocytes % (auto) 7.7 % (0.0-12.0); Neutrophils # (auto) 3.6 10 ^3/uL (1.6-8.6); Neutrophils % (auto) 49.6 % (37.0-80.0); Nucleated Red Blood Cells % 0.1 %; Platelet Count (auto) 214 10^3/uL (140-450); Red Blood Cells 4.47 10^6/uL (4.0-5.20); Red Cell Distribution Width 13.5 % (11.8-14.3); White Blood Cell 7.2 10^3/uL (4.4-10.8)
[2024-05-23 00:16] LABS: Chloride 101 mmol/L (98-107); Sodium 137 mmol/L (136-145)
[2024-05-23 00:17] LABS: Anion Gap 10 (5-15); Carbon Dioxide 26 mmol/L (20-31)
[2024-05-23 00:19] LABS: Calcium 10.8 mg/dL (8.7-10.4); Potassium 3.1 mmol/L (3.5-5.1)
[2024-05-23 00:22] LABS: Glucose 100 mg/dL (74-106)
--- NOTE | 2024-05-23 00:23 | DVH ---
CHEST RADIOGRAPH Indication: chest pain Technique: Single frontal view of the chest was obtained COMPARISON: XY CHEST PORTABLE on DOS: 05/06/24 FINDINGS: Lines and Tubes: None Lungs: Clear Pleura: No effusion. No pneumothorax. Cardiomediastinal contours: Unremarkable Bones: Unremarkable IMPRESSION: 1. No acute disease.
[2024-05-23 00:35] LABS: Urine Bacteria None Seen /hpf (None Seen)
[2024-05-23 00:43] LABS: Urine Blood Negative /uL (Negative); Urine Clarity Clear (Clear); Urine Protein, UAD Negative (Negative); Urine Specific Gravity 1.001 (1.001-1.035); Urine Squamous Epithelial Cell None Seen /hpf (<5); Urine Urobilinogen Normal (Negative); Urine pH 5.5 (5.0-9.0)
[2024-05-23 00:52] LABS: Urine Color STRAW (Yellow)
[2024-05-23 00:57] LABS: BUN/Creatinine Ratio 12.2 (10.0-20.0); Blood Urea Nitrogen 11 mg/dL (9-23)
[2024-05-23] MEDS ORDERED: ONDANSETRON HCL 4 MG/2 ML VIAL IV PRN (04:00)
[2024-05-23] MEDS ORDERED: ACETAMINOPHEN 325 MG TAB PO PRN (04:00)
[2024-05-23 04:30] VITALS: PULSE 103; RESP 18; O2SAT 100
[2024-05-23 04:35] LABS: Basophils # (auto) 0 10 ^3/uL (0-0.2); Basophils % (auto) 0.7 % (0.0-2.0); Eosinophils # (auto) 0.1 10 ^3/uL (0-0.8); Eosinophils % (auto) 0.9 % (0.0-7.0); Hematocrit 38.7 % (36.0-46.0); Lymphocytes # (auto) 2.4 10 ^3/uL (0.4-5.4); Lymphocytes % (auto) 35.3 % (10.0-50.0); Mean Corpuscular Hemoglobin 30.1 pg (28.0-32.0); Mean Corpuscular Hgb Conc. 33.6 g/dL (32.0-36.0); Mean Corpuscular Volume 89.5 fL (80.0-100.0); Monocytes # (auto) 0.5 10 ^3/uL (0-1.3); Monocytes % (auto) 7.3 % (0.0-12.0); Neutrophils # (auto) 3.8 10 ^3/uL (1.6-8.6); Neutrophils % (auto) 55.8 % (37.0-80.0); Platelet Count (auto) 203 10^3/uL (140-450); Red Blood Cells 4.32 10^6/uL (4.0-5.20); Red Cell Distribution Width 13.1 % (11.8-14.3); White Blood Cell 6.7 10^3/uL (4.4-10.8)
[2024-05-23] MEDS: POTASSIUM CHL 20 Meq TABLET PO ONE (04:42)
[2024-05-23 05:10] LABS: Alanine Aminotransferase 13 U/L (7-40); Albumin 4.9 g/dL (3.2-4.8); Alkaline Phosphatase 47 U/L (46-116); Anion Gap 7 (5-15); Aspartate Aminotransferase 17 U/L (13-40); BUN/Creatinine Ratio 9.9 (10.0-20.0); Blood Urea Nitrogen 9 mg/dL (9-23); Calcium 10.4 mg/dL (8.7-10.4); Carbon Dioxide 27 mmol/L (20-31); Chloride 106 mmol/L (98-107); Cholesterol 209 mg/dL (< 200); Glucose 97 mg/dL (74-106); HDL Cholesterol 64 mg/dL (40-59); LDL Cholesterol 133 mg/dL (< 100); Potassium 3.7 mmol/L (3.5-5.1); Sodium 140 mmol/L (136-145); Total Protein 7.8 g/dL (5.7-8.2); Triglycerides 57 mg/dL (< 150)
[2024-05-23 05:11] LABS: Bilirubin, Total 0.5 mg/dL (0.2-1.0)
[2024-05-23 05:15] VITALS: BP 119/83; PULSE 84; RESP 17; TEMP 98.4; O2SAT 100
[2024-05-23] MEDS: SODIUM CHLORIDE 0.9% 1,000 ML IV SCH (05:28)
[2024-05-23 05:31] LABS: Urine Bacteria None Seen /hpf (None Seen)
[2024-05-23 05:43] LABS: Urine Blood Negative /uL (Negative); Urine Clarity Clear (Clear); Urine Color Light-Yellow (Yellow); Urine Mucus FEW (None Seen); Urine Protein, UAD Negative (Negative); Urine Specific Gravity 1.021 (1.001-1.035); Urine Squamous Epithelial Cell FEW /hpf (<5); Urine Urobilinogen Normal (Negative); Urine WBC < 1 /HPF (0-5); Urine pH 5.5 (5.0-9.0)
[2024-05-23 05:53] LABS: Cannabinoid Screen, Urine Neg (NEGATIVE)
[2024-05-23 05:55] LABS: Amphetamine Screen, Urine Pos (NEGATIVE); Barbiturate Scree,Urine Neg (NEGATIVE); Benzodiazephine Screen, Urine Neg (NEGATIVE); Cocaine Screen, Urine Neg (NEGATIVE); Opiate Scree,Urine Neg (NEGATIVE); Phencyclidine Screen, Urine Neg (NEGATIVE)
--- NOTE | 2024-05-23 06:14 | DVHHPRES ---
History of Present Illness Resident Creating Document: LAWRENCE DUNLAP RESIDENT Reason for Visit: chest pain History of Present Illness This is a 44-year-old female with a past medical history of hypertension, prediabetes, thyroiditis (2019), GERD, cervical arthritiswho presents with recurrent substernal chest pain, similar to her prior episode in April. The pain remains unchanged in nature, described as sharp and pleuritic in nature mid sterna started yesterday. She also reports shortness of breath and bilateral leg swelling, numbness, and tingling, which were present during her last admission. Of note, the patient left against medical advice (AMA) during her previous admission on 05/07/24, before a complete evaluation was performed. Given her recurrent symptoms, we will proceed with further cardiac workup, including an echocardiogram to assess cardiac function. The patient denies palpitations, nausea, vomiting, fever, chills, or recent infections. Patient complained as well on lower abdominal pain, no dysuria, no tenesmus Past Medical History: Hypertension Prediabetes Thyroiditis (2019) GERD Cervical arthritis Anemia Past Surgical History: Hysterectomy Bilateral tubal ligation Medications: Amlodipine 2.5 mg daily Tramadol 50 mg PO BID (recently prescribed) Naproxen 500 mg PO BID (recently prescribed) Ciprofloxacin 500 mg PO BID (recently prescribed) Family History: Hypertension (HTN) in multiple family members. Social History: Smoking: Non-smoker Alcohol: Occasional use Drugs: Reports marijuana use Living situation: Lives at home Review of Systems Review of Systems Review of Systems: Constitutional: No fever, chills, or night sweats. Cardiovascular: Chest pain: Substernal, sharp, unchanged in nature. Shortness of breath. Bilateral leg swelling. Respiratory: No cough, hemoptysis, or wheezing. Gastrointestinal: abdominal pain. Neurologic: Reports bilateral leg numbness and tingling. No weakness, dizziness, or syncope. Allergies: Coded Allergies: NO KNOWN ALLERGIES (Unverified , 05/15/19) Medications Current Medications Medications Dose Ordered Sig/Cayla Route Start Time Stop Time Status Last Admin Dose Admin Sodium Chloride 1,000 ml @ 60 mls/hr [id number] IV 05/23/24 04:00 05/23/24 05:28 60 MLS/HR Acetaminophen 650 mg Q6HP PRN PO 05/23/24 04:00 Ondansetron HCl 4 mg Q4HP PRN IV 05/23/24 04:00 Enoxaparin Sodium 40 mg DAILY SC 05/23/24 10:00 Gabapentin 300 mg BID PO 05/23/24 06:00 UNV Exam Vital Signs Vital Signs Date Time Temp Pulse Resp B/P (MAP) Pulse Ox O2 Delivery O2 Flow Rate FiO2 05/23/24 05:15 Room Air* 0 21 05/23/24 05:15 98.4 84 17 119/83 (95) 100 98.4 Exam Physical Exam: General: No acute distress. HEENT: No JVD. Lungs: Clear to auscultation bilaterally. No crackles or wheezing. Cardiovascular: Regular rate and rhythm. No murmurs, rubs, or gallops. No lower extremity cyanosis. Tenderness at palpation in the sternum Extremities: No leg edema Neurologic: No focal deficits. Strength intact. Labs/Xrays Labs Test 05/23/24 05:15 05/23/24 04:19 05/23/24 02:41 Range/Units Urine Color Light-yellow Yellow Urine Clarity Clear Clear Urine pH 5.5 5.0-9.0 Urine Specific [place] 1.021 1.001-1.035 Urine Protein Negative Negative Urine Ketones Negative Negative Urine Blood Negative Negative /uL Urine Nitrite Negative Negative Urine Bilirubin Negative Negative Urine Urobilinogen Normal Negative mg/dL Urine Leukocyte Esterase Negative Negative /uL Urine RBC <1 0 - 4 /hpf Urine Microscopic WBC < 1 0-5 /HPF Urine Squamous Epithelial Cells Few <5 /hpf Urine Bacteria None seen None Seen /hpf Urine Mucus Few None Seen Urine Glucose Normal Normal mg/dL Urine Opiates Screen Neg NEGATIVE Urine Fentanyl Screen Neg NEGATIVE Urine Barbiturates Screen Neg NEGATIVE Urine Phencyclidine Screen Neg NEGATIVE Urine Amphetamines Screen Pos NEGATIVE Urine Benzodiazepines Screen Neg NEGATIVE Urine Cocaine Screen Neg NEGATIVE Urine Cannabinoids Screen Neg NEGATIVE White Blood Count 6.7 4.4-10.8 10^3/uL Red Blood Count 4.32 4.0-5.20 10^6/uL Hemoglobin 13.0 12.2-16.2 g/dL Hematocrit 38.7 36.0-46.0 % Mean Corpuscular Volume 89.5 80.0-100.0 fL Mean Corpuscular Hemoglobin 30.1 28.0-32.0 pg Mean Corpuscular Hemoglobin Concent 33.6 32.0-36.0 g/dL Red Cell Distribution Width 13.1 11.8-14.3 % Platelet Count 203 140-450 10^3/uL Mean Platelet Volume 8.1 6.9-10.8 fL Neutrophils (%) (Auto) 55.8 37.0-80.0 % Lymphocytes (%) (Auto) 35.3 10.0-50.0 % Monocytes (%) (Auto) 7.3 0.0-12.0 % Eosinophils (%) (Auto) 0.9 0.0-7.0 % Basophils (%) (Auto) 0.7 0.0-2.0 % Neutrophils # (Auto) 3.8 1.6-8.6 10 ^3/uL Lymphocytes # (Auto) 2.4 0.4-5.4 10 ^3/uL Monocytes # (Auto) 0.5 0-1.3 10 ^3/uL Eosinophils # (Auto) 0.1 0-0.8 10 ^3/uL Basophils # (Auto) 0 0-0.2 10 ^3/uL Nucleated Red Blood Cells 0.0 % D-Dimer, Quantitative 0.39 0.0-0.49 mg/L FEU Sodium Level 140 136-145 mmol/L Potassium Level 3.7 3.5-5.1 mmol/L Chloride Level 106 98-107 mmol/L Carbon Dioxide Level 27 20-31 mmol/L Anion Gap 7 5-15 Blood Urea Nitrogen 9 9-23 mg/dL Creatinine 0.91 0.550-1.02 mg/dL Glomerular Filtration Rate Calc 80 >90 mL/min BUN/Creatinine Ratio 9.9 L 10.0-20.0 Serum Glucose 97 74-106 mg/dL Hemoglobin A1c 5.5 <5.7 % A1C Calcium Level 10.4 8.7-10.4 mg/dL Total Bilirubin 0.5 0.2-1.0 mg/dL Aspartate Amino Transferase (AST) 17 13-40 U/L Alanine Aminotransferase (ALT) 13 7-40 U/L Alkaline Phosphatase 47 46-116 U/L Total Protein 7.8 5.7-8.2 g/dL Albumin 4.9 H 3.2-4.8 g/dL Triglycerides Level 57 < 150 mg/dL Cholesterol Level 209 H < 200 mg/dL LDL Cholesterol 133 H < 100 mg/dL HDL Cholesterol 64 H 40-59 mg/dL Troponin I High Sensitivity 12 </=34 ng/L Assessment/Plan Assessment/Plan Laboratory & Imaging: Troponin: neg BNP: neg prev admission. D-dimer: 0.39 (normal). CBC & CMP: unremarkable. Bilateral lower extremity ultrasound (05/07/24): No evidence of DVT. EKG: Sinus rhythm, no ST changes. Echocardiogram (ordered): Pending. Assessment & Plan: 44F with a history of HTN, prediabetes, GERD, and recent AMA discharge now presenting with recurrent substernal chest pain, SOB, and bilateral lower extremity tingling and pain #Chest pain # Rule out pericarditis #Hypertensive urgency resolved #Neuropathy #Hypokalemia resolved #Lower abdominal pain Admit ECHO TSH LABS am Pain management: tylenol and ibuprofen Amlodipine 5 mg Gabapentin K PO given Pelvic ultrasound Urine culture Case discussed with Dr Benjamin Plan discussed with: Patient, Other (rn) My Orders Orders - LAWRENCE DUNLAP Procedure Category Date Status Time Admit ADMIT 05/23/24 Transmitted 03:59 Code Status CODE 05/23/24 Transmitted 03:59 Vital Signs ALPESH 05/23/24 In Process 03:59 Review Orders With [facility] 05/23/24 In Process Adm. 03:59 Sodium Chloride 0.9% PHA 05/23/24 In Process 04:00 Acetaminophen Tablet PHA 05/23/24 In Process (Tylenol Tablet) 04:00 Notify Of Changes ALPESH 05/23/24 In Process From Base 03:59 Advance Directive ALPESH 05/23/24 In Process 03:59 Echo 2d Mode Cardiac US 05/23/24 Logged DOP 03:59 Urine Bacterial ANGELES 05/23/24 In Process Culture 03:59 Patient Condition ORDERS 05/23/24 Transmitted 03:59 Allergies ALPESH 05/23/24 In Process 03:59 Ondansetron Hcl PHA 05/23/24 In Process (Zofran) 04:00 Ambulate Every 4hours ALPESH 05/23/24 In Process 03:59 Enoxaparin Sodium PHA 05/23/24 In Process (Lovenox) 10:00 Pelvic US 05/23/24 Logged 04:09 Carole; Direct LAB 05/23/24 In Process 04:10 Cardiac DIET 05/23/24 Transmitted Diet-2gna,Lofat,Lochol Breakfast Gabapentin Capsule PHA 05/23/24 Logged (Neurontin Capsule) 06:00 Date of Service: May 23, 2024 Billing Provider: REJI BENJAMIN MD Common Visit Codes: 06258-[id number] INP/OBS CARE (HIGH) LAWRENCE DUNLAP RESIDENT May 23, 2024 06:13 REJI BENJAMIN MD May 23, 2024 17:55
[2024-05-23] MEDS ORDERED: IBUPROFEN 400 MG TAB PO PRN (06:15)
[2024-05-23] MEDS: GABAPENTIN 300 MG CAP PO SCH (06:38)
[2024-05-23 07:25] LABS: Erythrocyte Sedimentation Rate 8 mm/hr (0-20)
[2024-05-23 07:47] VITALS: BP 130/85; PULSE 94; RESP 18; TEMP 98.3; O2SAT 100
[2024-05-23 07:59] LABS: COVID19 ANTIGEN SOFIA FIA NEGATIVE (NEGATIVE)
[2024-05-23 08:00] LABS: Rapid Influenza A Negative (Negative)
[2024-05-23 08:02] LABS: Rapid Influenza B Positive (Negative)
--- NOTE | 2024-05-23 08:05 | DVH ---
INDICATION: LOWER ABDOMINAL PAIN TECHNIQUE: Multiple real-time grayscale transabdominal sonographic images along with color and duplex Doppler of the uterus and ovaries were obtained. COMPARISON: None FINDINGS: The uterus is surgically absent. The right ovary measures 3.1 x 2.0 x 2.0 cm. There is a right ovarian cyst measuring 1.8 x 1.5 x 1.9 cm The left ovary measures 3.4 x 1.7 x 3.1 cm. Subsequent color and duplex Doppler interrogation of the ovaries demonstrated symmetric vascular flow to both ovaries. Small volume free fluid in the cul[place]ac. IMPRESSION: 1. Right ovarian cyst measuring 1.9 cm. No ovarian torsion. 2. Hysterectomy.
[2024-05-23] MEDS ORDERED: OSELTAMIVIR 75 MG CAP PO ONE (08:30)
[2024-05-23 08:36] VITALS: PULSE 97; RESP 16; TEMP 98.7; O2SAT 100
--- NOTE | 2024-05-23 09:47 | DVHPNRES ---
Progress Note Date Seen: May 23, 2024 Resident Creating Document: TRENTON ALONZO RESIDENT Subjective Review of Systems Patient is 44 years old female with a past medical history of hypertension, prediabetes, thyroid disease in 2019, GERD, cervical arthritis came to the hospital with a complaint of chest pain. As per patient patient has been having intermittent chest pain going for last 2-3 weeks but yesterday it got worse. Chest pain was central, 9 out 10, intermittent, increased with the breathing, no radiation. Patient also reported associated shortness of breath with the chest pain. Patient reported she had fever 100 F at home couple of days before. Patient denied any palpitation or cough acute joint redness or tenderness. Initial lab workup revealed positive for influenza type B, potassium 3.1, A1c 5.5, troponin negative, cholesterol 209, LDL 133, UA negative for UTI, D-dimer 0.93, chest x-ray no acute cardiopulmonary disease. EKG with a sinus rhythm, no acute ST elevation or depression noted. PMH-hypertension, prediabetes, thyroiditis (2019), GERD, cervical arthritis PSH- hysterectomy, bilateral tubal ligation, Allergy- NKDA Personal History/ Social History- occasional alcoholic, use marijuana, denies smoking, lives at home Patient was seen today at the bedside. Respiratory denies wheezing Gastrointestinal- denies any rectal bleeding, nausea or vomiting Musculoskeletal-denies acute joint swelling or tenderness or redness Neurological- denies acute dysarthria, dysphagia, change in vision Psychiatry- denies depression or SI or HI Skin- denies acute rash or purpura Patient was seen today for clinical evaluation. Less than chart reviewed. Patient tested positive for influenza type B. Patient reported intermittent chest pain, today 08/27. EKG with a sinus rhythm, no acute ST elevation or depression noted. Objective vital signs Vital Sign Date Time Temp Pulse Resp B/P (MAP) Pulse Ox O2 Delivery O2 Flow Rate FiO2 05/23/24 07:47 98.3 94 18 130/85 (100) 100 98.3 05/23/24 05:15 Room Air* 0 21 medications Current Medications Medications Dose Ordered Sig/Cayla Route Start Time Stop Time Status Last Admin Dose Admin Acetaminophen 650 mg Q6HP PRN PO 05/23/24 04:00 Ondansetron HCl 4 mg Q4HP PRN IV 05/23/24 04:00 Enoxaparin Sodium 40 mg DAILY SC 05/23/24 10:00 Gabapentin 300 mg BID PO 05/23/24 06:00 05/23/24 06:38 300 MG Ibuprofen 400 mg Q8HP PRN PO 05/23/24 06:15 Amlodipine Besylate 5 mg DAILY PO 05/23/24 10:00 Oseltamivir Phosphate 75 mg Q12HR PO 05/23/24 10:00 05/27/24 09:59 Examination General examination- alert more oriented, conversant HEENT- PEERLA, no acute nasal discharge Cardiovascular- S1-S2 audible, rate and rhythm regular, no murmur Respiratory- CTAB, no wheeze or rhonchi Gastrointestinal-nontender, bowel sound+. Nondistended Musculoskeletal-no acute joint swelling or tenderness or redness# Lower extremity- no leg edema Neurological- cranial nerves intact, no acute dysarthria or dysphagia Psychiatry- denies depression or SI or HI Skin- no acute rash or purpura laboratory and microbiology Laboratory Tests 05/23/24 04:19 Test 05/23/24 04:19 Range/Units Serum Glucose 97 74-106 mg/dL Problem List/Assessment/Plan Problem List/Assessment/Plan Acute chest pain likely due to acute pericarditis Rule out acute coronary syndrome Influenza type B Hypokalemia mild replenished Hypertension, uncontrolled History of thyroiditis History of pre DM History of cervical arthritis GERD Plan Continue Tamiflu 75 mg p.o. b.i.d. Continue amlodipine 5 mg p.o. daily Gabapentin 300 mg p.o. b.i.d. Continue other medication as prescribed Goals of care/advance care planning; FULL CODE; discussed with the patient >15 minutes PUD prophylaxis: DVT prophylaxis: Lovenox Plan discussed with Dr. Zuniga , nursing staff, patient Total time spent on patient evaluation, chart review, assessment and plan, discussion discussion >35 minutes Plan discussed with: Patient Plan discussed with: Patient, Other (RN) My Orders My Orders Orders - TRENTON ALONZO Procedure Category Date Status Time Oseltamivir 75mg PHA 05/23/24 In Process Capsule (Tamiflu 75mg 10:00 TRENTON ALONZO May 23, 2024 09:47
[2024-05-23] MEDS: OSELTAMIVIR 75 MG CAP PO SCH (10:31)
[2024-05-23] MEDS: ENOXAPARIN SOD 40 MG/0.4 ML SYRINGE SC SCH (10:31)
[2024-05-23] MEDS: amLODIPine BESYLATE 5 MG TAB PO SCH (10:32)
--- NOTE | 2024-05-23 11:34 | DVHDSRES ---
Discharge Summary Date of Admission Resident Creating Document: TRENTON ALONZO May 23, 2024 at 03:59 Date of Discharge: May 23, 2024 Admitting Diagnosis Acute chest pain, rule out acute coronary syndrome Labs/Diagnostic Data: Laboratory Results Test 05/23/24 06:35 05/23/24 05:15 05/23/24 04:19 05/23/24 02:41 Influenza Type A Antigen Negative (Negative) Influenza Type B Antigen Positive (Negative) SARS-CoV-2 Antigen (Rapid) Negative (NEGATIVE) Urine Color Light-yellow (Yellow) Urine Clarity Clear (Clear) Urine pH 5.5 (5.0-9.0) Urine Specific [place] 1.021 (1.001-1.035) Urine Protein Negative (Negative) Urine Ketones Negative (Negative) Urine Blood Negative /uL (Negative) Urine Nitrite Negative (Negative) Urine Bilirubin Negative (Negative) Urine Urobilinogen Normal mg/dL (Negative) Urine Leukocyte Esterase Negative /uL (Negative) Urine RBC <1 /hpf (0 - 4) Urine Microscopic WBC < 1 /HPF (0-5) Urine Squamous Epithelial Cells Few /hpf (<5) Urine Bacteria None seen /hpf (None Seen) Urine Mucus Few (None Seen) Urine Glucose Normal mg/dL (Normal) Urine Opiates Screen Neg (NEGATIVE) Urine Fentanyl Screen Neg (NEGATIVE) Urine Barbiturates Screen Neg (NEGATIVE) Urine Phencyclidine Screen Neg (NEGATIVE) Urine Amphetamines Screen Pos (NEGATIVE) Urine Benzodiazepines Screen Neg (NEGATIVE) Urine Cocaine Screen Neg (NEGATIVE) Urine Cannabinoids Screen Neg (NEGATIVE) White Blood Count 6.7 10^3/uL (4.4-10.8) Red Blood Count 4.32 10^6/uL (4.0-5.20) Hemoglobin 13.0 g/dL (12.2-16.2) Hematocrit 38.7 % (36.0-46.0) Mean Corpuscular Volume 89.5 fL (80.0-100.0) Mean Corpuscular Hemoglobin 30.1 pg (28.0-32.0) Mean Corpuscular Hemoglobin Concent 33.6 g/dL (32.0-36.0) Red Cell Distribution Width 13.1 % (11.8-14.3) Platelet Count 203 10^3/uL (140-450) Mean Platelet Volume 8.1 fL (6.9-10.8) Neutrophils (%) (Auto) 55.8 % (37.0-80.0) Lymphocytes (%) (Auto) 35.3 % (10.0-50.0) Monocytes (%) (Auto) 7.3 % (0.0-12.0) Eosinophils (%) (Auto) 0.9 % (0.0-7.0) Basophils (%) (Auto) 0.7 % (0.0-2.0) Neutrophils # (Auto) 3.8 10 ^3/uL (1.6-8.6) Lymphocytes # (Auto) 2.4 10 ^3/uL (0.4-5.4) Monocytes # (Auto) 0.5 10 ^3/uL (0-1.3) Eosinophils # (Auto) 0.1 10 ^3/uL (0-0.8) Basophils # (Auto) 0 10 ^3/uL (0-0.2) Nucleated Red Blood Cells 0.0 % Erythrocyte Sedimentation Rate 8 mm/hr (0-20) D-Dimer, Quantitative 0.39 mg/L FEU (0.0-0.49) Sodium Level 140 mmol/L (136-145) Potassium Level 3.7 mmol/L (3.5-5.1) Chloride Level 106 mmol/L (98-107) Carbon Dioxide Level 27 mmol/L (20-31) Anion Gap 7 (5-15) Blood Urea Nitrogen 9 mg/dL (9-23) Creatinine 0.91 mg/dL (0.550-1.02) Glomerular Filtration Rate Calc 80 mL/min (>90) BUN/Creatinine Ratio 9.9 (10.0-20.0) Serum Glucose 97 mg/dL (74-106) Hemoglobin A1c 5.5 % A1C (<5.7) Calcium Level 10.4 mg/dL (8.7-10.4) Total Bilirubin 0.5 mg/dL (0.2-1.0) Aspartate Amino Transferase (AST) 17 U/L (13-40) Alanine Aminotransferase (ALT) 13 U/L (7-40) Alkaline Phosphatase 47 U/L (46-116) C-Reactive Protein High Sensitivity 0.06 mg/dL (<1.0) Total Protein 7.8 g/dL (5.7-8.2) Albumin 4.9 g/dL (3.2-4.8) Triglycerides Level 57 mg/dL (< 150) Cholesterol Level 209 mg/dL (< 200) LDL Cholesterol 133 mg/dL (< 100) HDL Cholesterol 64 mg/dL (40-59) Thyroid Stimulating Hormone (TSH) 0.74 uIU/mL (0.55-4.78) Troponin I High Sensitivity 12 ng/L (</=34) Other Laboratory Tests 05/23/24 04:19 Brief Hx & Hospital Course: HPI- Patient is 44 years old female with a past medical history of hypertension, prediabetes, thyroid disease in 2019, GERD, cervical arthritis came to the hospital with a complaint of chest pain. As per patient patient has been having intermittent chest pain going for last 2-3 weeks but yesterday it got worse. Chest pain was central, 9 out 10, intermittent, increased with the breathing, no radiation. Patient also reported associated shortness of breath with the chest pain. Patient reported she had fever 100 F at home couple of days before. Patient denied any palpitation or cough acute joint redness or tenderness. Initial lab workup revealed positive for influenza type B, potassium 3.1, A1c 5.5, troponin negative, cholesterol 209, LDL 133, UA negative for UTI, D-dimer 0.93, UDS positive for amphetamine. chest x-ray no acute cardiopulmonary disease. EKG with a sinus rhythm, no acute ST elevation or depression noted. Hospital course-patient came to the hospital due to chest pain which has been going on for last couple of weeks but got worse since yesterday, intermittent, increased with breathing. Patient is admitted to the hospital for acute chest pain, rule out acute coronary syndrome. Initial lab workup revealed positive for influenza type B, potassium 3.1, A1c 5.5, troponin negative, cholesterol 209, LDL 133, UA negative for UTI, D-dimer 0.93, chest x-ray no acute cardiopulmonary disease. EKG with a sinus rhythm, no acute ST elevation or depression noted. Patient's symptom improved with the conservative management. Patient was adamant about going home today. Patient is being discharged home with Tamiflu 75 mg p.o. b.i.d. for 5 days. Patient was advised to avoid sick contact or people of extremities like child and older people especially. Patient's meds were sent to the pharmacy electronically. Patient was hemodynamically stable on discharge. Patient was advised to follow up with the primary care physician in 1 week. Patient was counseled about the effect of substance abuse. Diagnosis Acute chest pain likely pleuritic chest pain Rule out acute coronary syndrome Influenza type B Hypokalemia mild replenished Hypertension, uncontrolled History of thyroiditis History of pre DM History of cervical arthritis Substance abuse amphetamine GERD Right ovarian cyst 1.9 cm Discharge plan Tamiflu 75 mg p.o. b.i.d. for 5 days Ibuprofen 400 mg q.6h p.r.n. for 7 days Pantoprazole 40 mg p.o. daily with meal for 2 weeks Please follow up with the primary care physician in 1 week Please follow up with the Gynecology and director graphics for ovarian cyst on the right 1.9 cm Patient was counseled about the effect of substance abuse on health. Condition at Discharge: Stable Final Diagnosis/Problems List Acute chest pain likely due to pleuritic chest pain Rule out acute coronary syndrome Influenza type B Hypokalemia mild replenished Hypertension, uncontrolled Substance abuse amphetamine History of thyroiditis History of pre DM History of cervical arthritis GERD Right ovarian cyst 1.9 cm Discharge Disposition: Home Discharge Instruct/Medications Diet: Regular Activity: No Restrictions, As Tolerated Follow Up/Referral: Please follow up with the primary care physician in 1 week Please follow up with the Gynecology and director graphics for ovarian cyst on the right 1.9 cm Please maintain adequate hydration Patient was counseled about the effect of substance abuse on health Medications: Tamiflu 75 mg by mouth 2 times a day for 5 days Ibuprofen 400 mg every 6 hours as needed Please resume home medications Pantoprazole 40 mg daily by mouth foot 2 weeks Discharge Statement: "Patient was advised to return to the ER or call 911 if any headaches, dizziness, shortness of breath, chest pain, abdominal pain, bleeding, fevers, or worsening of medical condition. Patient was counseled about treatment plan, medications, possible side effects, patientverbalized understanding. All questions were answered to the best of my ability. This discharge took greater then 30 minutes in planning, reviewing documentation, counseling the patient, and discussing with other team members." ASSESSMENT ASSESSMENT Assessment Acute chest pain likely due to pleuritic chest pain Rule out acute coronary syndrome Influenza type B Hypokalemia mild replenished Hypertension, uncontrolled History of thyroiditis History of pre DM History of cervical arthritis TRENTON FINLEY RESIDENT May 23, 2024 11:34
[2024-05-23] MEDS ORDERED: TAMIFLU PO (12:18)
[2024-05-23] MEDS ORDERED: PANT40T PO (12:18)
[2024-05-23 12:51] VITALS: BP 147/94; PULSE 99; RESP 21; O2SAT 99
--- NOTE | 2024-05-23 13:10 | ECG ---
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
--- NOTE | 2024-05-23 13:18 | DVHSR ---
APPROVED REPORT EXAM: Two-dimensional and M-mode echocardiogram with Doppler and color Doppler. Blood Pressure: 124/77 mmHg INDICATION Chest Pain RISK FACTORS Height: 5'6", Weight: 155 DIMENSIONS LVDd4.5 (3.8-5.7cm)LA (2D)2.6 (1.9-4.0cm)Aortic Root2.7 (2.0-3.7cm) LVDs2.6 (2.5-4.0cm)LA (MM) (1.9-4.0cm)Aortic Cusp Exc2.0 (1.5-2.0cm) EF (%) 73.0 (55-70%)Rt. Atrium2.9 (1.9-4.0cm)Asc. Aorta3.0 cm IVSd0.8 (0.7-1.1cm)RV (D)3.6 (1.8-2.4cm) PWd0.8 (0.7-1.1cm) Mitral Valve MitralMitral Stenosis E wave0.60m/sMV Mean GR.mmHg A wave0.48m/sMV Peak GR.mmHg E/A ratio1.32D MVAcm2 DECEL [id number] 1/2 Timems Aortic Valve Aortic ValveAortic Stenosis V10.88m/Marcos Mean GR.3mmHg V21.06m/Marcos Peak GR.5mmHg LVOT Diameter2.2 (1.8-2.4cm)Doppler AVA3.15cm2 Pulmonic Valve V20.90m/s Conclusion lvef 65 % byvisual estimate normal rv function normal atria size no severe valve abnormalities noted
--- NOTE | 2024-05-24 07:19 | ECG ---
[facility] Test Date: 2024-05-23 Test Time: 00:43:04 Pat Name: KIET BERNAL Department: ER Room: [address] [place] [address] Gender: F Activity Manager: ER : 1980 Requested By: DIEGO WARREN Order Number: [id number] Reading MD: Measurements Intervals [place] Rate: 99 P: 76 [place]: 138 QRS: 69 QRSD: 90 T: 18 QT: 351 QTc: 451 Interpretive Statements Sinus rhythm Probable left atrial enlargement Please click the below link to view image of tracing.
--- NOTE | 2024-05-24 07:19 | ECG ---
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
== END 2024-05-23 13:03 | disposition home or self-care, planned readmission (81) | DRG 204 ==
LOC: ER 23:42 → OVERFLOW 05-23 03:59
PROVIDERS: ADMIT Student in an Organized Health Care Education/Training Program; ATTEND Student in an Organized Health Care Education/Training Program
DX: R07.81 Pleurodynia (principal); I24.9 Acute ischemic heart disease, unspecified; I25.10 Atherosclerotic heart disease of native coronary artery without angina pectoris; E87.6 Hypokalemia; Z20.822 Contact with and (suspected) exposure to COVID-19; J10.1 Influenza due to other identified influenza virus with other respiratory manifestations; I10 Essential (primary) hypertension; N83.201 Unspecified ovarian cyst, right side; K21.9 Gastro-esophageal reflux disease without esophagitis; I16.0 Hypertensive urgency; G62.9 Polyneuropathy, unspecified; F15.10 Other stimulant abuse, uncomplicated; Z79.2 Long term (current) use of antibiotics; Z90.710 Acquired absence of both cervix and uterus; Z82.49 Family history of ischemic heart disease and other diseases of the circulatory system; Z79.899 Other long term (current) drug therapy
CPT/HCPCS: 36415; 71045; 76830; 76856; 80048; 80053; 80061; 80307; 81001; 83036; 84443; 84484; 85025; 85379; 85652; 86038; 86141; 87081; 87086; 87426; 87804; 93005; 93306; 99291; G0378

== ENCOUNTER 2025-03-06 21:56 | Emergency (ER) | payer OTHER, MEDICAID ==
[~2025-03-06] VITALS: Ht 167.6 cm; Wt 76.0 kg
[~2025-03-06 21:56] MED LIST changes: +PANT40T PO; +TAMIFLU PO
--- NOTE | 2025-03-06 22:38 | ED.PDOC ---
History of Present Illness HPI Comments 44-year-old female who came to ER for palpitations. Patient has been having intermittent episodes of palpitations for the past week. Associated with chest pains, weakness, nausea, headaches and dizziness. Patient also complaining of bruising on the legs for the past 2 years. Denies any trauma. Patient states she recently had a steroid injection on her knees. Patient also currently being worked up for thyroid disease. REVIEW OF SYSTEMS: General: No fever, no chills, or fatigue HEENT: No sore throat, no earache, no congestion, no neck pain. Cardiac: (+) chest pain. (+) palpitations. Lungs: No shortness of breath, no cough. GI: (+) nausea, no vomiting, no diarrhea, no constipation, no abdominal pain : No dysuria, frequency, or urgency. No hematuria. Musculoskeletal: No joint pain , no joint swelling, no extremity edema. Skin: No rash, no itching. Neuro: (+) headache, (+) dizziness, no weakness EXAM: General: Awake, alert and oriented. No acute distress. Skin: Skin in warm, dry and intact. Appropriate color for ethnicity. HEENT: The head is normocephalic and atraumatic. Conjunctivae are clear without exudates or hemorrhage. Sclera is non-icteric. EOM are intact. No signs of nystagmus. Eyelids are normal in appearance without swelling or lesions. Oral mucosa is pink and moist Neck: The neck is supple with normal range of motion. No JVD. Cardiac: Heart rate and rhythm are normal. No murmurs, gallops, or rubs are auscultated. Respiratory: No signs of respiratory distress. Lung sounds are clear in all lobes bilaterally without rales, rhonchi, or wheezes. Abdominal: Abdomen is soft, non-tender without distention. Bowel sounds are present and normoactive in all four quadrants. Extremities: Upper and lower extremities are atraumatic in appearance without deformity or edema. Neurological: The patient is awake, alert and oriented to person, place, and time with normal speech. Speech is clear. There is no facial asymmetry. Psychiatric: Appropriate mood and affect. Good judgement and insight Chief Complaint: Palpitations Time Seen by MD: 22:36 Primary Care Provider: Shannon Wilson Reviewed Notes: Nurses Notes Allergies: Coded Allergies: NO KNOWN ALLERGIES (Unverified , 2/26/20) Home Meds Active Scripts Pantoprazole Sodium Sesquihydr (Pantoprazole Sodium) 40 Mg Tab, 40 MG PO DAILY for 14 Days, #14 TAB Prov:TRENTON ALONZO RESIDENT 05/23/24 Oseltamivir Phosphate (Tamiflu) 75 Mg Cap, 75 MG PO BID for 5 Days, #10 CAP Prov[facility] 05/23/24 Tramadol Hcl (Tramadol Hcl) 50 Mg Tab, 50 MG PO BID for 5 Days, #10 TAB Prov:VIKRAM SANZ MD 11/06/21 Naproxen (NAPROSYN TABLET) 500 Mg Tb, 1 TAB PO BID for 7 Days, #14 TAB 1 Refill Prov:VIKRAM SANZ MD 11/06/21 Ciprofloxacin Hcl (Cipro) 500 Mg Tab, 1 TAB PO BID for 7 Days, #14 TAB Prov:VIKRAM SANZ MD 11/06/21 Information Source: Patient Mode of Arrival: Ambulatory Past Medical History PAST MEDICAL HISTORY: Anemia, Arthritis, DM, GERD, HTN, Thyroid Surgical History: BTL, Hysterectomy Surgical History (Other): Uterine ablation OCCUP THER History: No Pertinent OCCUP THER History Family History Family History: Family hx of HTN Social History Smoker: Non-Smoker Alcohol: Occasionally Drugs: Marijuana Lives In: Home Was a procedure done? Was a procedure done?: No EKG EKG : Pulse Rate (adult): 79 Cardiac Rhythm: NSR Differential Dx Considerations may include: Anemia, electrolyte imbalance, anxiety, palpitations, blood clots, thyroid disease X-Ray, Labs, Meds, VS Vital Signs Date Time Temp Pulse Resp B/P (MAP) Pulse Ox O2 Delivery O2 Flow Rate FiO2 03/07/25 00:30 98.2 71 20 156/88 (110) 100 98.2 03/06/25 23:00 72 03/06/25 22:38 79 03/06/25 22:13 79 03/06/25 21:58 98.2 100 16 150/95 99 98.2 Lab Test 03/06/25 23:27 03/06/25 22:44 Range/Units Urine Color Light-yellow Yellow Urine Clarity Clear Clear Urine pH 5.5 5.0-9.0 Urine Specific [place] 1.019 1.001-1.035 Urine Protein Negative Negative Urine Ketones Negative Negative Urine Blood Negative Negative /uL Urine Nitrite Negative Negative Urine Bilirubin Negative Negative Urine Urobilinogen Normal Negative mg/dL Urine Leukocyte Esterase Negative Negative /uL Urine RBC 1 0 - 4 /hpf Urine Microscopic WBC < 1 0-5 /HPF Urine Squamous Epithelial Cells Few <5 /hpf Urine Bacteria Few H None Seen /hpf Urine Mucus Few None Seen Urine Glucose Normal Normal mg/dL Urine Test Negative Negative White Blood Count 9.8 4.4-10.8 10^3/uL Red Blood Count 4.25 4.0-5.20 10^6/uL Hemoglobin 12.8 12.2-16.2 g/dL Hematocrit 39.1 36.0-46.0 % Mean Corpuscular Volume 91.9 80.0-100.0 fL Mean Corpuscular Hemoglobin 30.1 28.0-32.0 pg Mean Corpuscular Hemoglobin Concent 32.8 32.0-36.0 g/dL Red Cell Distribution Width 15.1 H 11.8-14.3 % Platelet Count 245 140-450 10^3/uL Mean Platelet Volume 7.8 6.9-10.8 fL Neutrophils (%) (Auto) 53.6 37.0-80.0 % Lymphocytes (%) (Auto) 38.1 10.0-50.0 % Monocytes (%) (Auto) 7.4 0.0-12.0 % Eosinophils (%) (Auto) 0.3 0.0-7.0 % Basophils (%) (Auto) 0.6 0.0-2.0 % Neutrophils # (Auto) 5.3 1.6-8.6 10 ^3/uL Lymphocytes # (Auto) 3.7 0.4-5.4 10 ^3/uL Monocytes # (Auto) 0.7 0-1.3 10 ^3/uL Eosinophils # (Auto) 0 0-0.8 10 ^3/uL Basophils # (Auto) 0.1 0-0.2 10 ^3/uL Nucleated Red Blood Cells 0.0 % D-Dimer, Quantitative 0.37 0.0-0.49 mg/L FEU Sodium Level 140 136-145 mmol/L Potassium Level 3.6 3.5-5.1 mmol/L Chloride Level 102 98-107 mmol/L Carbon Dioxide Level 29 20-31 mmol/L Anion Gap 9 5-15 Blood Urea Nitrogen 6 L 9-23 mg/dL Creatinine 0.89 0.550-1.02 mg/dL Glomerular Filtration Rate Calc 82 >90 mL/min BUN/Creatinine Ratio 6.7 L 10.0-20.0 Serum Glucose 86 74-106 mg/dL Calcium Level 9.6 8.7-10.4 mg/dL Troponin I High Sensitivity 12 </=34 ng/L B-Type Natriuretic Peptide 26.36 0-100 pg/mL Thyroid Stimulating Hormone (TSH) 0.94 0.55-4.78 uIU/mL PROCEDURE(s): BLDVT - BiLat Lower DVT REASON: Bilateral calf pain, family history of PE ORDER NUMBER(s): [id number], ACCESSION NUMBER(s): [id number] CLINICAL HISTORY: Bilateral calf pain, family history of PE TECHNIQUE: Color and duplex doppler imaging of the bilateral lower extremity veins was performed. Vessel compression if possible was also performed. WID: COMPARISON: US BILAT LOWER DVT on DOS: 05/07/24 FINDINGS: Right Lower Extremity: Right common femoral vein: Normal compressibility and flow. Right femoral vein: Normal compressibility and flow. Right popliteal vein: Normal compressibility and flow. Left Lower Extremity: Left common femoral vein: Normal compressibility and flow. Left femoral vein: Normal compressibility and flow. Left popliteal vein: Normal compressibility and flow. IMPRESSION: 1. NO SONOGRAPHIC EVIDENCE FOR DEEP VENOUS THROMBOSIS IN THE BILATERAL LOWER EXTREMITY VEINS. Time of 1ST Reevaluation: 22:33 Reevaluation 1ST: Unchanged Patient Education/Counseling: Need For Follow Up Family Education/Counseling: No Family Present SEPSIS Sepsis Screen Date sepsis recognized/suspect: Mar 06, 2025 Time Sepsis recognized/suspect: 2200 Recent Procedure: No On Antibiotic Therapy: No Respiratory Rate >20: No Heart Rate >90: No Temp<36 C (96.8 F) or >38.3 C: No SBP <90 or MAP <65 mmHG: No New Acute Mental Status Change: No Is the patient on CPAP, BIPAP,: No Physician Orders Electrocardigram (03/06/25 22:19) Electrocardigram (03/06/25 23:19) Bilat Lower Dvt (03/06/25 22:31) Chest Xray 1 View (03/07/25 00:12) Vital Signs Date Time Temp Pulse Resp B/P (MAP) Pulse Ox O2 Delivery O2 Flow Rate FiO2 03/07/25 00:30 98.2 71 20 156/88 (110) 100 98.2 03/06/25 23:00 72 03/06/25 22:38 79 03/06/25 22:13 79 03/06/25 21:58 98.2 100 16 150/95 99 98.2 Laboratory Tests Test 03/06/25 22:44 White Blood Count 9.8 10^3/uL (4.4-10.8) Departure 1 Departure Time of Disposition: 00:11 Impression: Primary Impression: Palpitations Disposition: HOME / SELF CARE / HOMELESS Condition: Stable Additional Instructions: ED DISCHARGE INSTRUCTIONS Instructions: Please read all instructions provided in this packet carefully. Although you have been discharged from the Emergency Department, this does not mean that you have a "clean bill of health". No definitive diagnosis for your symptoms has been made today. It is possible that you are in the process of d eveloping a serious illness. This is why you must return to the ED without fail if any new or worsening symptoms (especially if your symptoms include chest pain, trouble breathing, abdominal pain, fever, headache, confusion, trouble seeing, or trouble walking) It is also very important that you see a primary care provider (PCP) within the next 3-5 days to follow up. If you are unable to get an appointment, return to the ED for re-evaluation. A copy of your chest x-ray and ultrasound report is included below. You had elevated blood pressure reading today. Untreated high blood pressure can have serious consequences. However, you need a follow-up appointment to recheck your blood pressure to determine whether or not you need treatment. Make an appointment with your primary care provider for this within the next week. PALPITATIONS EDUCATION Heart palpitations are the uncomfortable sensation that your heart is beating fast or irregularly. You might feel pounding or fluttering in your chest. It might feel like your heart is skipping a beat. Palpitations may be caused by a heart problem. But they also occur because of many other things. These include other health problems, stress, exercise, or use of alcohol, caffeine, or nicotine. Some prescription medicines and defb-ksl-wgjhxgz medicines can also cause heart palpitations. Nearly everyone has palpitations from time to time. Depending on your symptoms, your doctor may need to do more tests to try to find the cause of your palpitations. Follow-up care is a hanna part of your treatment and safety. Be sure to make and go to all appointments, and call your doctor if you are having problems. It's also a good idea to know your test results and keep a list of the medicines you take. How can you care for yourself at home? If they trigger palpitations, limit or avoid alcohol or caffeine. Do not smoke. If you need help quitting, talk to your doctor about stop-smoking programs and medicines. These can increase your chances of quitting for good. Ask your doctor whether you can take uysn-uia-binvznt medicines (such as decongestants). These may cause palpitations. If you think you may have a problem with drug use, talk to your doctor. Certain drugs, such as cocaine and methamphetamine, can affect your heart rate and rhythm. If you have palpitations again, take deep breaths and try to relax. Or try any physical things that your doctor recommended. These may include bearing down or coughing. If you start to feel lightheaded, sit or lie down to avoid injuries that might result if you pass out and fall down. If your doctor recommends it, keep a record of your palpitations and bring it to your next doctor's appointment. Write down: The date and time. Your pulse. (If your heart is beating fast, it may be hard to count your pulse.) If your heart rhythm was regular or irregular. What you were doing when the palpitations started. How long the palpitations lasted. Any other symptoms. What may have helped your symptoms go away. If an activity causes palpitations, slow down or stop. Talk to your doctor before you do that activity again. Take your medicines exactly as prescribed. Call your doctor if you think you are having a problem with your medicine. When should you call for help? Call 911 anytime you think you may need emergency care. For example, call if: You passed out (lost consciousness). You have symptoms of a heart attack. These may include: Chest pain or pressure, or a strange feeling in the chest. Sweating. Shortness of breath. Pain, pressure, or a strange feeling in the back, neck, jaw, or upper belly or in one or both shoulders or arms. Lightheadedness or sudden weakness. A fast or irregular heartbeat. After you call 911, the benzene still utility operator may tell you to chew 1 adult-strength or 2 to 4 low-dose aspirin. Wait for an ambulance. Do not try to drive yourself. You have symptoms of a stroke. These may include: Sudden numbness, tingling, weakness, or loss of movement in your face, arm, or leg, especially on only one side of your body. Sudden vision changes. Sudden trouble speaking. Sudden confusion or trouble understanding simple statements. Sudden problems with walking or balance. A sudden, severe headache that is different from past headaches. Call your doctor now or seek immediate medical care if: You have heart palpitations and: Are dizzy or lightheaded, or you feel like you may faint. Have new or increased shortness of breath. Watch closely for changes in your health, and be sure to contact your doctor if: You continue to have heart palpitations. Current as of: October 18, 2023 Author: [employer] Staff? Comments 44-year-old female who presented with palpitations, chest pain, lower extremity pain and swelling. EKG negative for signs of ischemia or pathologic arrhythmia. High sensitivity troponin negative. CXR shows no acute process. D-dimer was negative. Bilateral lower extremity ultrasound negative for DVT. Presentation not suggestive of pathologic arrhythmia, acute coronary syndrome, pulmonary embolism or aortic dissection. Patient improved at time of discharge. Patient has not been hypoxic, in respiratory distress or dyspneic during the ED observation. Patient able to ambulate without difficulty. Patient felt stable for discharge to follow up with PCP promptly. Patient advised to return to the ED with any new, worsening or concerning symptoms or inability to follow up with PCP. Critical Care Note Critical Care Time?: No Stability Stability form required: No Heart Score Heart Score: Heart Score Response (Comments) Value History N/A 0 EKG N/A 0 Age N/A 0 Risk Factors N/A 0 Troponin N/A 0 Total 0 I personally scribed for JAGDISH REYES MD ([email or web address]) on 03/06/25 at 22:38. Electronically submitted by Jose Maldonado ([email or web address]). I personally scribed for JAGDISH REYES MD ([email or web address]) on 03/07/25 at 00:08. Electronically submitted by Jose Maldonado ([email or web address]). JAGDISH REYES MD Mar 06, 2025 22:38
[2025-03-06 23:00] LABS: Hematocrit 39.1 % (36.0-46.0); Hemoglobin 12.8 g/dL (12.2-16.2); Mean Corpuscular Hemoglobin 30.1 pg (28.0-32.0); Mean Corpuscular Volume 91.9 fL (80.0-100.0); Nucleated Red Blood Cells % 0.0 %
[2025-03-06 23:04] LABS: Chloride 102 mmol/L (98-107); Potassium 3.6 mmol/L (3.5-5.1); Sodium 140 mmol/L (136-145)
[2025-03-06 23:05] LABS: Anion Gap 9 (5-15); Calcium 9.6 mg/dL (8.7-10.4); Carbon Dioxide 29 mmol/L (20-31)
[2025-03-06 23:10] LABS: BUN/Creatinine Ratio 6.7 (10.0-20.0); Glucose 86 mg/dL (74-106)
--- NOTE | 2025-03-06 23:10 | DVH ---
CLINICAL HISTORY: Bilateral calf pain, family history of PE TECHNIQUE: Color and duplex doppler imaging of the bilateral lower extremity veins was performed. Vessel compression if possible was also performed. WID: COMPARISON: US BILAT LOWER DVT on DOS: 05/07/24 FINDINGS: Right Lower Extremity: Right common femoral vein: Normal compressibility and flow. Right femoral vein: Normal compressibility and flow. Right popliteal vein: Normal compressibility and flow. Left Lower Extremity: Left common femoral vein: Normal compressibility and flow. Left femoral vein: Normal compressibility and flow. Left popliteal vein: Normal compressibility and flow. IMPRESSION: 1. NO SONOGRAPHIC EVIDENCE FOR DEEP VENOUS THROMBOSIS IN THE BILATERAL LOWER EXTREMITY VEINS.
[2025-03-06 23:14] LABS: Blood Urea Nitrogen 6 mg/dL (9-23)
[2025-03-07 00:30] VITALS: BP 156/88; PULSE 71; RESP 20; TEMP 98.2; O2SAT 100
[2025-03-07 00:33] LABS: Urine Protein, UAD Negative (Negative)
--- NOTE | 2025-03-07 00:54 | DVH ---
CHEST RADIOGRAPH INDICATION: Chest pain, palpitations TECHNIQUE: Single frontal view of the chest was obtained COMPARISON: XY CHEST PORTABLE on DOS: 05/23/24, XY CHEST PORTABLE on DOS: 05/06/24 FINDINGS: Lungs and pleural spaces are clear. Cardiac silhouette and smiley are within normal limits. Bones and soft tissues demonstrate no significant abnormality. IMPRESSION: No acute disease.
--- NOTE | 2025-03-09 22:15 | ECG ---
[facility] Test Date: 2025-03-06 Test Time: 22:13:38 Pat Name: KIET BERNAL Department: Room: Gender: F Compliance Assistant: RAYMON : 1980 Requested By: JAGDISH REYES Order Number: [id number] Reading MD: Mark Sebastian Measurements Intervals [place] Rate: 79 P: 66 MO: 127 QRS: 72 QRSD: 86 T: 28 QT: 383 QTc: 440 Interpretive Statements Sinus rhythm Consider right atrial enlargement Electronically Signed On 03-10-2025 15:21:50 PST by Mark Sebastian Please click the below link to view image of tracing.
--- NOTE | 2025-03-09 22:15 | ECG ---
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
== END 2025-03-07 01:11 | disposition home or self-care (01) ==
LOC: ER 21:56
DX: R00.2 Palpitations (principal); I10 Essential (primary) hypertension; E11.9 Type 2 diabetes mellitus without complications; Z90.710 Acquired absence of both cervix and uterus; Z79.899 Other long term (current) drug therapy
CPT/HCPCS: 36415; 71045; 80048; 81001; 81025; 83880; 84443; 84484; 85025; 85379; 93005; 93970